=== PATIENT | female | born 1950 | race Two or more races ===

== ENCOUNTER 2022-06-12 19:49 | Inpatient (IN) | payer OTHER, MEDICAID ==
[~2022-06-12] VITALS: Ht 167.6 cm; Wt 60.0 kg
[2022-06-12 21:23] LABS: Basophils # (auto) 0 10 ^3/uL (0-0.2); Basophils % (auto) 0.3 % (0.0-2.0); Eosinophils # (auto) 0 10 ^3/uL (0-0.8); Hematocrit 34.6 % (36.0-46.0); Hemoglobin 12.1 g/dL (12.2-16.2); Lymphocytes # (auto) 0.7 10 ^3/uL (0.4-5.4); Lymphocytes % (auto) 8.7 % (10.0-50.0); Mean Corpuscular Hemoglobin 27.7 pg (28.0-32.0); Mean Corpuscular Hgb Conc. 34.9 g/dL (32.0-36.0); Mean Corpuscular Volume 79.2 fL (80.0-100.0); Monocytes # (auto) 0.6 10 ^3/uL (0-1.3); Monocytes % (auto) 7.5 % (0.0-12.0); Neutrophils % (auto) 83.5 % (37.0-80.0); Red Blood Cells 4.37 10^6/uL (4.0-5.20); Red Cell Distribution Width 14.7 % (11.8-14.3); White Blood Cell 8.4 10^3/uL (4.4-10.8)
[2022-06-12 21:35] LABS: Albumin 3.3 g/dL (3.4-5.0); Calcium 9.1 mg/dL (8.5-10.1); Potassium 4.7 mmol/L (3.5-5.1)
[2022-06-12 21:38] LABS: BUN/Creatinine Ratio 27.8 (10.0-20.0); INR 0.97 (0.9-1.15); Partial Thromboplastin Time 27.2 sec (24.6-33.4)
[2022-06-12 21:50] LABS: Bilirubin, Total 0.4 mg/dL (0.2-1.0)
[2022-06-12] MEDS ORDERED: LACTATED RINGER'S 1,800 ML IV ONE (22:30)
[2022-06-12] MEDS ORDERED: InsuLIN REG 1unit/0.01ml Soln (100units/ml) IV ONE (22:30)
[2022-06-13] MEDS ORDERED: DOCUSATE SOD 100 MG CAP PO PRN (00:30)
[2022-06-13] MEDS ORDERED: NITROGLYCERIN 0.4 MG SL TAB SL PRN (00:30)
[2022-06-13] MEDS ORDERED: HYDROcodone-ACET 5/325MG TAB PO PRN (00:30)
[2022-06-13] MEDS ORDERED: DEXTROSE (50%) 50ML SYRG IV PRN (00:30)
[2022-06-13] MEDS ORDERED: MORPHINE SULFATE INJ 2 MG/ml SYRG IV PRN ×2 (00:30)
[2022-06-13] MEDS ORDERED: ONDANSETRON HCL 4 MG/2 ML VIAL IV PRN (00:30)
[2022-06-13] MEDS ORDERED: ACETAMINOPHEN 325 MG TAB PO PRN (00:30)
[2022-06-13 06:29] LABS: Basophils # (auto) 0 10 ^3/uL (0-0.2); Eosinophils # (auto) 0 10 ^3/uL (0-0.8); Hematocrit 33.4 % (36.0-46.0); Hemoglobin 11.4 g/dL (12.2-16.2); Lymphocytes # (auto) 0.9 10 ^3/uL (0.4-5.4); Mean Corpuscular Hemoglobin 27.6 pg (28.0-32.0); Mean Corpuscular Hgb Conc. 34.3 g/dL (32.0-36.0); Mean Corpuscular Volume 80.5 fL (80.0-100.0); Monocytes # (auto) 0.6 10 ^3/uL (0-1.3); Neutrophils # (auto) 6.1 10 ^3/uL (1.6-8.6); Red Blood Cells 4.15 10^6/uL (4.0-5.20); Red Cell Distribution Width 14.4 % (11.8-14.3); White Blood Cell 7.6 10^3/uL (4.4-10.8)
[2022-06-13] MEDS: InsuLIN REG 1unit/0.01ml Soln (100units/ml) SC SCH ×4 (06:31→16:00)
[2022-06-13] MEDS: ACCU-CHEK COMFORT CURVE STRIP VI SCH ×4 (06:31→16:00)
[2022-06-13] MEDS: SODIUM CHLORIDE 0.9% 1,000 ML IV SCH ×2 (06:32→17:10)
[2022-06-13 06:53] LABS: Potassium 4.3 mmol/L (3.5-5.1)
[2022-06-13 06:54] LABS: Calcium 8.6 mg/dL (8.5-10.1)
[2022-06-13 06:58] LABS: Bilirubin, Total 0.5 mg/dL (0.2-1.0); Total Protein 6.7 g/dL (6.4-8.2)
[2022-06-13] MEDS ORDERED: LEVOTHYROXINE SODIUM 50 MCG TAB PO SCH (07:00)
[2022-06-13] MEDS ORDERED: ASPirin 81 mg TAB PO SCH (10:00)
[2022-06-13] MEDS ORDERED: FAMOTIDINE (10MG/ML) 2ML VL IV SCH (10:00)
[2022-06-13 17:56] VITALS: BP 124/76
[2022-06-13] MEDS ORDERED: ATORVASTATIN 20 MG TAB PO SCH (22:00)
== END 2022-06-13 18:30 | disposition home health service (06) | DRG 205 ==
LOC: ER 19:49 → EDBD 19:49 → TELE 06-13 00:18
PROVIDERS: ADMIT Nurse Practitioner Family; ATTEND Nurse Practitioner Family
DX: M94.0 Chondrocostal junction syndrome [Tietze] (principal); N17.0 Acute kidney failure with tubular necrosis; E87.1 Hypo-osmolality and hyponatremia; E86.0 Dehydration; E03.9 Hypothyroidism, unspecified; E78.5 Hyperlipidemia, unspecified; E11.65 Type 2 diabetes mellitus with hyperglycemia; I12.9 Hypertensive chronic kidney disease with stage 1 through stage 4 chronic kidney disease, or unspecified chronic kidney disease; E11.22 Type 2 diabetes mellitus with diabetic chronic kidney disease; N18.9 Chronic kidney disease, unspecified; Z79.4 Long term (current) use of insulin
CPT/HCPCS: 36415; 70450; 71045; 80053; 82962; 83036; 83735; 83880; 84443; 84484; 85025; 85610; 85730; 93005; 96361; 96374; 97163; 99291; G0378; J1815; J2405; J3490

== ENCOUNTER 2022-06-16 17:46 | Inpatient (IN) | payer OTHER, MEDICAID ==
[~2022-06-16] VITALS: Ht 167.6 cm; Wt 58.6 kg
[2022-06-16] MEDS ORDERED: SODIUM CHLORIDE 0.9% 1,000 ML IV ONE (19:00)
[2022-06-16 19:48] LABS: Hemoglobin 10.6 g/dL (12.2-16.2); Mean Corpuscular Hemoglobin 27.2 pg (28.0-32.0); Mean Corpuscular Hgb Conc. 33.1 g/dL (32.0-36.0); Mean Corpuscular Volume 82.2 fL (80.0-100.0)
[2022-06-16 19:50] LABS: Red Blood Cells 3.89 10^6/uL (4.0-5.20); Red Cell Distribution Width 14.5 % (11.8-14.3); White Blood Cell 11.7 10^3/uL (4.4-10.8)
[2022-06-16 19:53] LABS: Basophils % (manual) 0 (0.0-2.0); Blast Cells 0; Eosinophils % (manual) 0 (0-7); Myelocytes % 0; Promyelocytes % 0; Reactive Lymphocytes 0
[2022-06-16 19:57] LABS: Albumin 2.3 g/dL (3.4-5.0); Calcium 7.3 mg/dL (8.5-10.1); Magnesium 2.4 mg/dL (1.6-2.6); Potassium 5.2 mmol/L (3.5-5.1)
[2022-06-16 19:59] LABS: BUN/Creatinine Ratio 37.5 (10.0-20.0)
[2022-06-16 20:02] LABS: Bilirubin, Total 0.5 mg/dL (0.2-1.0); Total Protein 6.5 g/dL (6.4-8.2)
[2022-06-16] MEDS ORDERED: InsuLIN REG 1unit/0.01ml Soln (100units/ml) IV ONE (20:30)
[2022-06-16] MEDS ORDERED: SODIUM CHLORIDE 0.9% 2,050 ML IV ONE (20:30)
[2022-06-16] MEDS ORDERED: DEXTROSE (50%) 50ML SYRG IV PRN ×2 (21:00→21:45)
[2022-06-16] MEDS ORDERED: InsuLIN R (HUMAN) 100 UNITS in SODIUM CHL 0.9% 99 ML IV SCH (21:00)
[2022-06-16] MEDS ORDERED: ALBUMIN 25% 50 ML IV ONE (21:45)
[2022-06-16] MEDS ORDERED: TEMAZEPAM 15 MG CAP PO PRN (21:45)
[2022-06-16] MEDS ORDERED: INSULIN LANTUS (GLARGINE) 1 /0.01ml (100units/ml) SC ONE (21:45)
[2022-06-16] MEDS ORDERED: MORPHINE SULFATE INJ 2 MG/ml SYRG IV PRN (21:45)
[2022-06-16] MEDS ORDERED: NITROGLYCERIN 0.4 MG SL TAB SL PRN (21:45)
[2022-06-16] MEDS ORDERED: ACETAMINOPHEN 325 MG TAB PO PRN (21:45)
[2022-06-16] MEDS ORDERED: ONDANSETRON HCL 4 MG/2 ML VIAL ONE (21:53)
[2022-06-16] MEDS: ONDANSETRON HCL 4 MG/2 ML VIAL IV PRN (21:55)
[2022-06-16 21:57] LABS: Band Neutrophils % (manual) 25; Lymphocytes % (manual) 5 (10.0-50.0); Metamyelocytes % 1; Monocytes % (manual) 6 (0-12)
[2022-06-16] MEDS: ACCU-CHEK COMFORT CURVE STRIP VI SCH ×2 (22:00→22:30)
[2022-06-16] MEDS: InsuLIN R (HUMAN) 100 UNITS in SODIUM CHL 0.9% 99 ML IV SCH (22:10)
[2022-06-16 22:34] LABS: BUN/Creatinine Ratio 40.7 (10.0-20.0); Calcium 6.6 mg/dL (8.5-10.1); Potassium 4.2 mmol/L (3.5-5.1)
[2022-06-16] MEDS: APIXABAN 5 MG TAB PO SCH (22:51)
[2022-06-16 23:24] LABS: Urine Bacteria NONE SEEN /hpf (None Seen); Urine Blood TRACE /uL (Negative); Urine Hyaline Cast FEW /lpf (0 - 2); Urine Specific Gravity 1.014 (1.001-1.035); Urine WBC 1 /hpf (0 - 5)
[2022-06-17] VITALS (96 sets, daily range): BP systolic 77–119; BP diastolic 38–72
[2022-06-17] MEDS: SODIUM CHLORIDE 0.9% 1,000 ML IV SCH ×4 (00:36→23:45)
[2022-06-17] MEDS: ACCU-CHEK COMFORT CURVE STRIP VI SCH ×11 (00:50→20:52)
[2022-06-17] MEDS: InsuLIN R (HUMAN) 100 UNITS in SODIUM CHL 0.9% 99 ML IV SCH ×4 (00:55→06:21)
[2022-06-17] MEDS: ONDANSETRON HCL 4 MG/2 ML VIAL IV PRN ×2 (02:20→09:25)
[2022-06-17 03:00] LABS: Hemoglobin 9.8 g/dL (12.2-16.2)
[2022-06-17 03:03] LABS: Hematocrit 29.2 % (36.0-46.0); Mean Corpuscular Hemoglobin 27.8 pg (28.0-32.0); Mean Corpuscular Hgb Conc. 33.5 g/dL (32.0-36.0); Red Blood Cells 3.52 10^6/uL (4.0-5.20); Red Cell Distribution Width 14.8 % (11.8-14.3); White Blood Cell 9.8 10^3/uL (4.4-10.8)
[2022-06-17 03:09] LABS: Basophils % (manual) 0 (0.0-2.0); Blast Cells 0; Eosinophils % (manual) 0 (0-7); Promyelocytes % 0; Reactive Lymphocytes 0
[2022-06-17 03:17] LABS: Albumin 2.3 g/dL (3.4-5.0); BUN/Creatinine Ratio 48.8 (10.0-20.0); Calcium 6.9 mg/dL (8.5-10.1); Potassium 3.9 mmol/L (3.5-5.1)
[2022-06-17 03:20] LABS: Bilirubin, Total 0.4 mg/dL (0.2-1.0)
[2022-06-17 04:31] LABS: Band Neutrophils % (manual) 32; Lymphocytes % (manual) 7 (10.0-50.0); Metamyelocytes % 1; Monocytes % (manual) 6 (0-12); Myelocytes % 1
[2022-06-17] MEDS: D5W/SOD CHLO 0.9% 1,000 ML IV SCH ×2 (06:15→22:59)
[2022-06-17] MEDS ORDERED: ALBUTEROL SULF 2.5 MG/0.5ML(0.5%) NEB SOLN NEB PRN ×2 (06:15→10:00)
[2022-06-17] MEDS: APIXABAN 5 MG TAB PO SCH ×2 (07:31→22:00)
[2022-06-17] MEDS ORDERED: cefTRIAXone SOD 1,000 MG VL IM ONE (08:15)
[2022-06-17] MEDS ORDERED: FUROSEMIDE 40 MG/4 ML VIAL IV ONE (08:15)
[2022-06-17] MEDS ORDERED: NOREPINEPHRINE 8 MG/250ML KIT 250 ML IV ONE (08:16)
[2022-06-17] MEDS ORDERED: FUROSEMIDE 40 MG/4 ML VIAL ONE (08:23)
[2022-06-17] MEDS: NOREPINEPHRINE 8 MG/250ML KIT 250 ML IV SCH (08:30)
[2022-06-17] MEDS: AZITHROMYCIN 500MG/ 250ML 250 ML IV SCH (08:32)
[2022-06-17] MEDS: cefTRIAXone 1GM/50ML D5W 50 ML IV SCH (09:25)
[2022-06-17] MEDS: INSULIN LANTUS (GLARGINE) 1 /0.01ml (100units/ml) SC SCH (09:59)
[2022-06-17] MEDS ORDERED: PANTOPRAZOLE 40 MG/10 ML VIAL INJ IV SCH (10:00)
[2022-06-17] MEDS ORDERED: PANTOPRAZOLE 40 MG TAB PO SCH (10:00)
[2022-06-17 10:34] LABS: Hematocrit 30.6 % (36.0-46.0); Mean Corpuscular Hgb Conc. 32.8 g/dL (32.0-36.0); Mean Corpuscular Volume 82.4 fL (80.0-100.0); Red Blood Cells 3.71 10^6/uL (4.0-5.20); Red Cell Distribution Width 14.7 % (11.8-14.3); White Blood Cell 12.4 10^3/uL (4.4-10.8)
[2022-06-17 10:39] LABS: Basophils % (manual) 0 (0.0-2.0); Blast Cells 0; Eosinophils % (manual) 0 (0-7); Promyelocytes % 0; Reactive Lymphocytes 0
[2022-06-17 11:18] LABS: Band Neutrophils % (manual) 37; Lymphocytes % (manual) 6 (10.0-50.0); Metamyelocytes % 3; Monocytes % (manual) 3 (0-12); Myelocytes % 1
[2022-06-17 11:26] LABS: BUN/Creatinine Ratio 53.8 (10.0-20.0)
[2022-06-17] MEDS: MIDAZOLAM DRIP 50 mg/50mL 50 ML IV SCH (11:45)
[2022-06-17] MEDS ORDERED: ETOMIDATE (2MG/ML) 20ML VIAL IV ONE (11:45)
[2022-06-17] MEDS ORDERED: ROCURONIUM 10MG/ML 10ML VIAL IV ONE (11:45)
[2022-06-17] MEDS: PROPOFOL 100 ML IV SCH ×2 (12:00→18:14)
[2022-06-17] MEDS: fentaNYL Drip 2500mCg/250mlNS 250 ML IV SCH (12:00)
[2022-06-17] MEDS ORDERED: SODIUM CHLORIDE 0.9% 2,000 ML IV ONE (12:15)
[2022-06-17] MEDS ORDERED: PHENYLEPHRINE IV 250 ML IV SCH (13:00)
[2022-06-17] MEDS: ALBUTEROL SULF 2.5 MG/0.5ML(0.5%) NEB SOLN NEB SCH ×3 (13:26→22:51)
[2022-06-17] MEDS ORDERED: DEXTROSE (50%) 50ML SYRG IV PRN (13:45)
[2022-06-17] MEDS: InsuLIN REG 1unit/0.01ml Soln (100units/ml) SC SCH ×2 (15:43→20:58)
[2022-06-17] MEDS: PANTOPRAZOLE 40mg/50ML NS AE 50 ML IV SCH ×3 (15:46→23:57)
[2022-06-17 16:10] LABS: INR 1.01 (0.9-1.15)
[2022-06-17 16:21] LABS: Magnesium 2.1 mg/dL (1.6-2.6); Phosphorus 2.3 mg/dL (2.5-4.90)
[2022-06-17 16:26] LABS: % Iron Saturation 6.4 % (15-50)
[2022-06-17 16:46] LABS: Protein, Urine 65.2 mg/dL (0.0-11.9)
[2022-06-17] MEDS: PHENYLEPHRINE INJ 80 MG in SODIUM CHL 0.9% 242 ML IV SCH (17:00)
[2022-06-17 18:34] LABS: Hemoglobin 9.7 g/dL (12.2-16.2)
[2022-06-17 18:45] LABS: BUN/Creatinine Ratio 47.7 (10.0-20.0); Calcium 6.3 mg/dL (8.5-10.1); Potassium 3.4 mmol/L (3.5-5.1)
[2022-06-18] VITALS (108 sets, daily range): BP systolic 83–124; BP diastolic 45–66
[2022-06-18] MEDS: ACCU-CHEK COMFORT CURVE STRIP VI SCH ×6 (00:02→20:19)
[2022-06-18] MEDS: InsuLIN REG 1unit/0.01ml Soln (100units/ml) SC SCH ×6 (00:10→20:00)
[2022-06-18 00:38] LABS: Hematocrit 25.3 % (36.0-46.0); Hemoglobin 8.5 g/dL (12.2-16.2)
[2022-06-18] MEDS: ALBUTEROL SULF 2.5 MG/0.5ML(0.5%) NEB SOLN NEB SCH ×6 (02:42→22:10)
[2022-06-18] MEDS: PROPOFOL 100 ML IV SCH ×4 (03:02→23:48)
[2022-06-18] MEDS: PHENYLEPHRINE INJ 80 MG in SODIUM CHL 0.9% 242 ML IV SCH ×3 (03:03→21:11)
[2022-06-18] MEDS: NOREPINEPHRINE 8 MG/250ML KIT 250 ML IV SCH (03:49)
[2022-06-18] MEDS: PANTOPRAZOLE 40mg/50ML NS AE 50 ML IV SCH ×4 (05:51→23:45)
[2022-06-18] MEDS: SODIUM CHLORIDE 0.9% 1,000 ML IV SCH ×2 (06:25→10:34)
[2022-06-18 06:50] LABS: Potassium 3.2 mmol/L (3.5-5.1)
[2022-06-18] MEDS: APIXABAN 5 MG TAB PO SCH (06:57)
[2022-06-18 07:02] LABS: Albumin 1.5 g/dL (3.4-5.0); BUN/Creatinine Ratio 36.3 (10.0-20.0); Calcium 6.3 mg/dL (8.5-10.1)
[2022-06-18 07:13] LABS: Bilirubin, Total 0.3 mg/dL (0.2-1.0); Total Protein 4.8 g/dL (6.4-8.2)
[2022-06-18 07:15] LABS: Hemoglobin 8.1 g/dL (12.2-16.2); Mean Corpuscular Hemoglobin 27.6 pg (28.0-32.0); Mean Corpuscular Hgb Conc. 33.9 g/dL (32.0-36.0); Mean Corpuscular Volume 81.4 fL (80.0-100.0); Red Blood Cells 2.94 10^6/uL (4.0-5.20); Red Cell Distribution Width 14.9 % (11.8-14.3); White Blood Cell 21.1 10^3/uL (4.4-10.8)
[2022-06-18 07:52] LABS: Basophils % (manual) 0 (0.0-2.0); Blast Cells 0; Eosinophils % (manual) 0 (0-7); Metamyelocytes % 0; Myelocytes % 0; Promyelocytes % 0; Reactive Lymphocytes 0
[2022-06-18] MEDS: INSULIN LANTUS (GLARGINE) 1 /0.01ml (100units/ml) SC SCH (08:24)
[2022-06-18] MEDS: cefTRIAXone 1GM/50ML D5W 50 ML IV SCH (08:30)
[2022-06-18] MEDS: MIDAZOLAM DRIP 50 mg/50mL 50 ML IV SCH (08:31)
[2022-06-18] MEDS: AZITHROMYCIN 500MG/ 250ML 250 ML IV SCH (08:33)
[2022-06-18] MEDS: D5W/SOD CHLO 0.9% 1,000 ML IV SCH (08:55)
[2022-06-18 10:08] LABS: Band Neutrophils % (manual) 16; Lymphocytes % (manual) 16 (10.0-50.0); Monocytes % (manual) 1 (0-12)
[2022-06-18] MEDS: fentaNYL Drip 2500mCg/250mlNS 250 ML IV SCH (10:28)
[2022-06-18] MEDS ORDERED: CLINIMIX PER PHARMACY 0 ML IV SCH (13:15)
[2022-06-18] MEDS ORDERED: POTASSIUM CHL 20MEQ/100ML 100 ML IV ONE (14:30)
[2022-06-18] MEDS ORDERED: CALCIUM GLUC 1,000mg/50ml-NS 50 ML IV ONE (14:30)
[2022-06-18 14:40] LABS: Magnesium 2.3 mg/dL (1.6-2.6); Phosphorus 1.6 mg/dL (2.5-4.90)
[2022-06-18] MEDS ORDERED: SODIUM PHOSPHATES 24 MEQ in SODIUM CHL 0.9% 100 ML IV ONE (15:45)
[2022-06-18] MEDS: metroNIDAZOLE 500MG/100ML 100 ML IV SCH ×2 (16:25→23:57)
[2022-06-18] MEDS: AMINO ACID INFUSION IN D10W 1,000 ML IV NR (20:00)
[2022-06-19] VITALS (105 sets, daily range): BP systolic 81–142; BP diastolic 43–68
[2022-06-19] MEDS: ACCU-CHEK COMFORT CURVE STRIP VI SCH ×7 (00:24→23:41)
[2022-06-19] MEDS: InsuLIN REG 1unit/0.01ml Soln (100units/ml) SC SCH ×7 (00:27→23:40)
[2022-06-19] MEDS: ALBUTEROL SULF 2.5 MG/0.5ML(0.5%) NEB SOLN NEB SCH ×7 (02:44→22:28)
[2022-06-19 04:52] LABS: Hemoglobin 10.4 g/dL (12.2-16.2); Mean Corpuscular Hemoglobin 28.1 pg (28.0-32.0); Mean Corpuscular Hgb Conc. 33.6 g/dL (32.0-36.0); Mean Corpuscular Volume 83.8 fL (80.0-100.0); Red Blood Cells 3.69 10^6/uL (4.0-5.20); Red Cell Distribution Width 15.3 % (11.8-14.3); White Blood Cell 23.1 10^3/uL (4.4-10.8)
[2022-06-19] MEDS: PANTOPRAZOLE 40mg/50ML NS AE 50 ML IV SCH ×5 (04:54→20:19)
[2022-06-19 04:57] LABS: Basophils % (manual) 0 (0.0-2.0); Blast Cells 0; Eosinophils % (manual) 0 (0-7); Myelocytes % 0; Promyelocytes % 0
[2022-06-19 05:00] LABS: Potassium 3.1 mmol/L (3.5-5.1)
[2022-06-19 05:08] LABS: Albumin 1.2 g/dL (3.4-5.0); BUN/Creatinine Ratio 26.8 (10.0-20.0); Bilirubin, Total 0.4 mg/dL (0.2-1.0); Calcium 7.2 mg/dL (8.5-10.1); Magnesium 1.9 mg/dL (1.6-2.6); Total Protein 4.4 g/dL (6.4-8.2)
[2022-06-19 05:10] LABS: INR 1.02 (0.9-1.15); Partial Thromboplastin Time 23.6 sec (24.6-33.4)
[2022-06-19] MEDS: PROPOFOL 100 ML IV SCH ×2 (05:15→18:05)
[2022-06-19] MEDS: D5W/SOD CHLO 0.9% 1,000 ML IV SCH ×2 (05:15→11:35)
[2022-06-19] MEDS: metroNIDAZOLE 500MG/100ML 100 ML IV SCH ×4 (05:20→23:40)
[2022-06-19] MEDS: fentaNYL Drip 2500mCg/250mlNS 250 ML IV SCH (07:12)
[2022-06-19] MEDS: NOREPINEPHRINE 8 MG/250ML KIT 250 ML IV SCH (07:35)
[2022-06-19 07:42] LABS: Band Neutrophils % (manual) 9; Lymphocytes % (manual) 2 (10.0-50.0); Metamyelocytes % 2; Monocytes % (manual) 3 (0-12); Reactive Lymphocytes 1
[2022-06-19] MEDS: INSULIN LANTUS (GLARGINE) 1 /0.01ml (100units/ml) SC SCH (07:50)
[2022-06-19] MEDS ORDERED: POTASSIUM PHOSPHATE 44 MEQ in D5W 5% 250 ML IV ONE (08:15)
[2022-06-19] MEDS: cefTRIAXone 1GM/50ML D5W 50 ML IV SCH (08:31)
[2022-06-19] MEDS: AZITHROMYCIN 500MG/ 250ML 250 ML IV SCH (08:31)
[2022-06-19] MEDS: MIDAZOLAM DRIP 50 mg/50mL 50 ML IV SCH (10:46)
[2022-06-19] MEDS ORDERED: IOHEXOL 300 MG/ML 100ML BOTTLE IJ ONE (11:26)
[2022-06-19] MEDS ORDERED: ALBUMIN 25% 100 ML IV ONE (14:45)
[2022-06-19] MEDS ORDERED: SODIUM CHLORIDE 0.9% 1,000 ML IV ONE (14:45)
[2022-06-19] MEDS: SODIUM CHLORIDE 0.9% 1,000 ML IV SCH (15:19)
[2022-06-19] MEDS ORDERED: DexAMETHasone SOD PHOS 10MG/1ML VIAL INJ ONE (19:15)
[2022-06-19] MEDS ORDERED: ONDANSETRON HCL 4 MG/2 ML VIAL ONE (19:15)
[2022-06-20] VITALS (108 sets, daily range): BP systolic 81–167; BP diastolic 42–131
[2022-06-20] MEDS: ALBUTEROL SULF 2.5 MG/0.5ML(0.5%) NEB SOLN NEB SCH ×6 (02:03→21:55)
[2022-06-20] MEDS: PROPOFOL 100 ML IV SCH (03:24)
[2022-06-20] MEDS: PANTOPRAZOLE 40mg/50ML NS AE 50 ML IV SCH ×2 (03:24→08:26)
[2022-06-20] MEDS: InsuLIN REG 1unit/0.01ml Soln (100units/ml) SC SCH ×5 (04:00→19:42)
[2022-06-20] MEDS: ACCU-CHEK COMFORT CURVE STRIP VI SCH ×5 (04:10→19:42)
[2022-06-20 04:35] LABS: Hematocrit 32.3 % (36.0-46.0); Hemoglobin 10.5 g/dL (12.2-16.2); Mean Corpuscular Hgb Conc. 32.5 g/dL (32.0-36.0); Red Blood Cells 3.76 10^6/uL (4.0-5.20); Red Cell Distribution Width 16.1 % (11.8-14.3); White Blood Cell 26.9 10^3/uL (4.4-10.8)
[2022-06-20 04:41] LABS: Albumin 1.5 g/dL (3.4-5.0); Calcium 6.8 mg/dL (8.5-10.1); Magnesium 1.8 mg/dL (1.6-2.6); Potassium 3.3 mmol/L (3.5-5.1)
[2022-06-20 04:44] LABS: Basophils % (manual) 0 (0.0-2.0); Blast Cells 0; Eosinophils % (manual) 0 (0-7); Metamyelocytes % 0; Myelocytes % 0; Promyelocytes % 0; Reactive Lymphocytes 0
[2022-06-20 04:45] LABS: BUN/Creatinine Ratio 22.4 (10.0-20.0); Bilirubin, Total 0.5 mg/dL (0.2-1.0); Phosphorus 1.2 mg/dL (2.5-4.90); Total Protein 4.7 g/dL (6.4-8.2)
[2022-06-20] MEDS: SODIUM CHLORIDE 0.9% 1,000 ML IV SCH (05:43)
[2022-06-20] MEDS: metroNIDAZOLE 500MG/100ML 100 ML IV SCH ×3 (05:43→17:35)
[2022-06-20] MEDS: AMINO ACID INFUSION IN D10W 1,000 ML IV NR ×2 (08:10→19:41)
[2022-06-20] MEDS: NOREPINEPHRINE 8 MG/250ML KIT 250 ML IV SCH (08:15)
[2022-06-20 08:25] LABS: Band Neutrophils % (manual) 4; Lymphocytes % (manual) 4 (10.0-50.0); Monocytes % (manual) 5 (0-12)
[2022-06-20] MEDS: cefTRIAXone 1GM/50ML D5W 50 ML IV SCH (10:19)
[2022-06-20] MEDS: AZITHROMYCIN 500MG/ 250ML 250 ML IV SCH (10:19)
[2022-06-20] MEDS: fentaNYL Drip 2500mCg/250mlNS 250 ML IV SCH (10:21)
[2022-06-20] MEDS: MIDAZOLAM DRIP 50 mg/50mL 50 ML IV SCH (10:21)
[2022-06-20] MEDS: INSULIN LANTUS (GLARGINE) 1 /0.01ml (100units/ml) SC SCH (10:21)
[2022-06-20] MEDS: PHENYLEPHRINE INJ 80 MG in SODIUM CHL 0.9% 242 ML IV SCH (13:02)
[2022-06-20] MEDS ORDERED: POTASSIUM PHOSPHATE 44 MEQ in D5W 5% 250 ML IV ONE (15:30)
[2022-06-20] MEDS ORDERED: MAGNESIUM SULFATE 1GM/100ML 100 ML IV SCH ×2 (15:35→16:00)
[2022-06-21] VITALS (107 sets, daily range): BP systolic 88–167; BP diastolic 46–86
[2022-06-21] MEDS: metroNIDAZOLE 500MG/100ML 100 ML IV SCH ×5 (00:10→23:35)
[2022-06-21] MEDS: InsuLIN REG 1unit/0.01ml Soln (100units/ml) SC SCH ×7 (00:11→23:35)
[2022-06-21] MEDS: ACCU-CHEK COMFORT CURVE STRIP VI SCH ×7 (00:11→23:35)
[2022-06-21] MEDS: ALBUTEROL SULF 2.5 MG/0.5ML(0.5%) NEB SOLN NEB SCH ×6 (02:04→22:11)
[2022-06-21] MEDS: fentaNYL Drip 2500mCg/250mlNS 250 ML IV SCH ×2 (02:08→15:55)
[2022-06-21] MEDS: SODIUM CHLORIDE 0.9% 1,000 ML IV SCH ×3 (02:09→23:03)
[2022-06-21 04:45] LABS: Hematocrit 30.4 % (36.0-46.0); Hemoglobin 10.3 g/dL (12.2-16.2); Mean Corpuscular Hemoglobin 28.1 pg (28.0-32.0); Mean Corpuscular Hgb Conc. 33.9 g/dL (32.0-36.0); Red Blood Cells 3.66 10^6/uL (4.0-5.20); Red Cell Distribution Width 15.6 % (11.8-14.3); White Blood Cell 20.9 10^3/uL (4.4-10.8)
[2022-06-21 04:59] LABS: Basophils % (manual) 0 (0.0-2.0); Blast Cells 0; Eosinophils % (manual) 0 (0-7); Metamyelocytes % 0; Promyelocytes % 0; Reactive Lymphocytes 0
[2022-06-21 05:13] LABS: Calcium 7.2 mg/dL (8.5-10.1)
[2022-06-21 05:17] LABS: BUN/Creatinine Ratio 28.6 (10.0-20.0)
[2022-06-21 06:11] LABS: Phosphorus 0.8 mg/dL (2.5-4.90); Potassium 2.8 mmol/L (3.5-5.1)
[2022-06-21] MEDS ORDERED: POTASSIUM PHOSPHATE 26.4 MEQ in SODIUM CHL 0.9% 100 ML IV ONE (07:00)
[2022-06-21] MEDS: NOREPINEPHRINE 8 MG/250ML KIT 250 ML IV SCH (08:15)
[2022-06-21] MEDS: cefTRIAXone 1GM/50ML D5W 50 ML IV SCH (08:18)
[2022-06-21 08:44] LABS: Band Neutrophils % (manual) 20; Lymphocytes % (manual) 3 (10.0-50.0); Monocytes % (manual) 4 (0-12); Myelocytes % 1
[2022-06-21] MEDS: PROPOFOL 100 ML IV SCH ×2 (10:45→15:56)
[2022-06-21] MEDS: PANTOPRAZOLE 40 MG/10 ML VIAL INJ IV SCH (11:11)
[2022-06-21] MEDS: DexAMETHasone SOD PHOS 10MG/1ML VIAL INJ IV SCH (11:11)
[2022-06-21] MEDS: AZITHROMYCIN 500MG/ 250ML 250 ML IV SCH (11:12)
[2022-06-21] MEDS: INSULIN LANTUS (GLARGINE) 1 /0.01ml (100units/ml) SC SCH (11:14)
[2022-06-21] MEDS ORDERED: POTASSIUM PHOSPHATE 44 MEQ in D5W 5% 250 ML IV ONE (11:15)
[2022-06-21] MEDS: MIDAZOLAM DRIP 50 mg/50mL 50 ML IV SCH (11:45)
[2022-06-21] MEDS ORDERED: QUEtiapine FUMARATE 25 MG TAB NG ONE (14:00)
[2022-06-21] MEDS ORDERED: POTASSIUM CHL 20MEQ/100ML 100 ML IV ONE (14:00)
[2022-06-21] MEDS: PHENYLEPHRINE INJ 80 MG in SODIUM CHL 0.9% 242 ML IV SCH (17:00)
[2022-06-21 18:31] LABS: Albumin 1.2 g/dL (3.4-5.0); Calcium 7.1 mg/dL (8.5-10.1); Potassium 3.6 mmol/L (3.5-5.1)
[2022-06-21 18:35] LABS: BUN/Creatinine Ratio 21.6 (10.0-20.0); Bilirubin, Total 0.3 mg/dL (0.2-1.0); Total Protein 4.4 g/dL (6.4-8.2)
[2022-06-21] MEDS: AMINO ACID INFUSION IN D10W 1,000 ML IV NR (20:58)
[2022-06-22] VITALS (107 sets, daily range): BP systolic 85–173; BP diastolic 39–88
[2022-06-22] MEDS: ALBUTEROL SULF 2.5 MG/0.5ML(0.5%) NEB SOLN NEB SCH ×6 (02:13→22:09)
[2022-06-22] MEDS: ACCU-CHEK COMFORT CURVE STRIP VI SCH ×6 (03:30→23:43)
[2022-06-22] MEDS: InsuLIN REG 1unit/0.01ml Soln (100units/ml) SC SCH ×6 (03:30→23:43)
[2022-06-22 04:08] LABS: Hematocrit 27.2 % (36.0-46.0); Hemoglobin 9.2 g/dL (12.2-16.2); Mean Corpuscular Hemoglobin 29.2 pg (28.0-32.0); Red Blood Cells 3.16 10^6/uL (4.0-5.20); White Blood Cell 14.1 10^3/uL (4.4-10.8)
[2022-06-22 04:11] LABS: Basophils % (manual) 0 (0.0-2.0); Blast Cells 0; Eosinophils % (manual) 0 (0-7); Metamyelocytes % 0; Promyelocytes % 0; Reactive Lymphocytes 0
[2022-06-22 04:15] LABS: Albumin 1.3 g/dL (3.4-5.0); Calcium 7.2 mg/dL (8.5-10.1); Magnesium 1.7 mg/dL (1.6-2.6); Potassium 3.2 mmol/L (3.5-5.1)
[2022-06-22 04:19] LABS: BUN/Creatinine Ratio 27.1 (10.0-20.0); Bilirubin, Total 0.3 mg/dL (0.2-1.0); Total Protein 4.3 g/dL (6.4-8.2)
[2022-06-22 04:40] LABS: Phosphorus 0.8 mg/dL (2.5-4.90)
[2022-06-22] MEDS: PROPOFOL 100 ML IV SCH (05:32)
[2022-06-22] MEDS: metroNIDAZOLE 500MG/100ML 100 ML IV SCH ×4 (05:53→23:30)
[2022-06-22 08:01] LABS: Band Neutrophils % (manual) 10; Lymphocytes % (manual) 7 (10.0-50.0); Monocytes % (manual) 5 (0-12); Myelocytes % 1
[2022-06-22] MEDS: NOREPINEPHRINE 8 MG/250ML KIT 250 ML IV SCH (08:15)
[2022-06-22] MEDS: DexAMETHasone SOD PHOS 10MG/1ML VIAL INJ IV SCH (10:00)
[2022-06-22] MEDS: PANTOPRAZOLE 40 MG/10 ML VIAL INJ IV SCH (10:00)
[2022-06-22] MEDS: INSULIN LANTUS (GLARGINE) 1 /0.01ml (100units/ml) SC SCH (10:30)
[2022-06-22] MEDS: QUEtiapine FUMARATE 25 MG TAB NG SCH (11:00)
[2022-06-22] MEDS: AZITHROMYCIN 500MG/ 250ML 250 ML IV SCH (11:00)
[2022-06-22] MEDS: MIDAZOLAM DRIP 50 mg/50mL 50 ML IV SCH (11:45)
[2022-06-22] MEDS ORDERED: POTASSIUM PHOSPHATE 26.4 MEQ in SODIUM CHL 0.9% 100 ML IV ONE (12:00)
[2022-06-22] MEDS: MAGNESIUM SULFATE 1GM/100ML 100 ML IV SCH ×2 (12:00→13:08)
[2022-06-22] MEDS: SODIUM CHLORIDE 0.9% 1,000 ML IV SCH ×2 (14:00→14:30)
[2022-06-22] MEDS: cefTRIAXone 1GM/50ML D5W 50 ML IV SCH (15:00)
[2022-06-22] MEDS ORDERED: SODIUM PHOSP 40 MEQ in D5W 5% 250 ML IV ONE (17:00)
[2022-06-22] MEDS: PHENYLEPHRINE INJ 80 MG in SODIUM CHL 0.9% 242 ML IV SCH (17:00)
[2022-06-22 19:35] LABS: Potassium 3.2 mmol/L (3.5-5.1)
[2022-06-22] MEDS: AMINO ACID INFUSION IN D10W 1,000 ML IV NR (19:39)
[2022-06-22] MEDS: fentaNYL Drip 2500mCg/250mlNS 250 ML IV SCH (19:55)
[2022-06-23] VITALS (104 sets, daily range): BP systolic 72–167; BP diastolic 18–128
[2022-06-23] MEDS: PROPOFOL 100 ML IV SCH ×2 (01:17→13:24)
[2022-06-23] MEDS: ALBUTEROL SULF 2.5 MG/0.5ML(0.5%) NEB SOLN NEB SCH ×6 (01:53→21:59)
[2022-06-23] MEDS: InsuLIN REG 1unit/0.01ml Soln (100units/ml) SC SCH ×5 (04:00→20:00)
[2022-06-23] MEDS: ACCU-CHEK COMFORT CURVE STRIP VI SCH ×5 (04:00→20:00)
[2022-06-23 04:17] LABS: Hematocrit 24.8 % (36.0-46.0); Hemoglobin 8.5 g/dL (12.2-16.2); Mean Corpuscular Hemoglobin 28.8 pg (28.0-32.0); Mean Corpuscular Hgb Conc. 34.4 g/dL (32.0-36.0); Mean Corpuscular Volume 83.6 fL (80.0-100.0); Red Blood Cells 2.97 10^6/uL (4.0-5.20); Red Cell Distribution Width 15.6 % (11.8-14.3); White Blood Cell 10.2 10^3/uL (4.4-10.8)
[2022-06-23 04:32] LABS: Albumin 1.2 g/dL (3.4-5.0); Anion Gap 2 (5-15); Blood Urea Nitrogen 15 mg/dL (7-18); Calcium 7.1 mg/dL (8.5-10.1); Carbon Dioxide 27 mmol/L (21-32); Chloride 112 mmol/L (98-107); Glucose 161 mg/dL (74-106); Magnesium 1.8 mg/dL (1.6-2.6); Sodium 141 mmol/L (136-145)
[2022-06-23 04:35] LABS: Alanine Aminotransferase < 6 U/L (13-56); Alkaline Phosphatase 43 U/L (45-117); Aspartate Aminotransferase 7 U/L (15-37); BUN/Creatinine Ratio 44.1 (10.0-20.0); Bilirubin, Total 0.2 mg/dL (0.2-1.0); GFR African American 242 mL/min; GFR Non-African American 200 mL/min; Phosphorus 1.8 mg/dL (2.5-4.90); Total Protein 4.1 g/dL (6.4-8.2)
[2022-06-23 04:49] LABS: Potassium 2.8 mmol/L (3.5-5.1)
[2022-06-23 05:15] LABS: Basophils % (manual) 0 (0.0-2.0); Blast Cells 0; Metamyelocytes % 0; Myelocytes % 0; Promyelocytes % 0; Reactive Lymphocytes 0
[2022-06-23 05:16] LABS: Band Neutrophils % (manual) 28; Eosinophils % (manual) 1 (0-7); Lymphocytes % (manual) 8 (10.0-50.0); Monocytes % (manual) 2 (0-12)
[2022-06-23] MEDS ORDERED: POTASSIUM PHOSPHATE 26.4 MEQ in SODIUM CHL 0.9% 100 ML IV ONE (05:30)
[2022-06-23] MEDS: metroNIDAZOLE 500MG/100ML 100 ML IV SCH ×3 (05:30→18:00)
[2022-06-23] MEDS ORDERED: SODIUM PHOSPHATES 40 MEQ in D5W 5% 250 ML IV ONE (05:30)
[2022-06-23] MEDS: NOREPINEPHRINE 8 MG/250ML KIT 250 ML IV SCH (08:15)
[2022-06-23] MEDS: cefTRIAXone 1GM/50ML D5W 50 ML IV SCH (08:49)
[2022-06-23] MEDS: PANTOPRAZOLE 40 MG/10 ML VIAL INJ IV SCH (09:30)
[2022-06-23] MEDS: DexAMETHasone SOD PHOS 10MG/1ML VIAL INJ IV SCH (09:30)
[2022-06-23] MEDS: QUEtiapine FUMARATE 25 MG TAB NG SCH (09:30)
[2022-06-23] MEDS: AZITHROMYCIN 500MG/ 250ML 250 ML IV SCH (10:00)
[2022-06-23] MEDS: INSULIN LANTUS (GLARGINE) 1 /0.01ml (100units/ml) SC SCH (10:00)
[2022-06-23] MEDS ORDERED: POTASSIUM CHL 20MEQ/100ML 100 ML IV ONE (10:30)
[2022-06-23] MEDS: MIDAZOLAM DRIP 50 mg/50mL 50 ML IV SCH (11:45)
[2022-06-23] MEDS: SODIUM CHLORIDE 0.9% 1,000 ML IV SCH (12:43)
[2022-06-23] MEDS: PHENYLEPHRINE INJ 80 MG in SODIUM CHL 0.9% 242 ML IV SCH (17:00)
[2022-06-23] MEDS: fentaNYL Drip 2500mCg/250mlNS 250 ML IV SCH (17:30)
[2022-06-23] MEDS: POTASSIUM CHL 20MEQ/100ML 100 ML IV SCH ×2 (20:21→22:28)
[2022-06-23] MEDS: AMINO ACID INFUSION IN D10W 1,000 ML IV NR (20:23)
[2022-06-24] VITALS (108 sets, daily range): BP systolic 83–178; BP diastolic 50–118
[2022-06-24] MEDS: metroNIDAZOLE 500MG/100ML 100 ML IV SCH ×4 (00:35→18:43)
[2022-06-24] MEDS: ALBUTEROL SULF 2.5 MG/0.5ML(0.5%) NEB SOLN NEB SCH ×6 (02:09→22:09)
[2022-06-24] MEDS: ACCU-CHEK COMFORT CURVE STRIP VI SCH ×6 (03:25→20:00)
[2022-06-24] MEDS: InsuLIN REG 1unit/0.01ml Soln (100units/ml) SC SCH ×6 (03:26→20:00)
[2022-06-24] MEDS: PROPOFOL 100 ML IV SCH (04:16)
[2022-06-24 04:58] LABS: Albumin 1.3 g/dL (3.4-5.0); Calcium 6.8 mg/dL (8.5-10.1); Magnesium 1.7 mg/dL (1.6-2.6); Potassium 4.5 mmol/L (3.5-5.1)
[2022-06-24 05:04] LABS: BUN/Creatinine Ratio 36.8 (10.0-20.0); Bilirubin, Total 0.4 mg/dL (0.2-1.0); Phosphorus 1.4 mg/dL (2.5-4.90); Total Protein 4.3 g/dL (6.4-8.2)
[2022-06-24] MEDS: NOREPINEPHRINE 8 MG/250ML KIT 250 ML IV SCH (08:15)
[2022-06-24] MEDS ORDERED: SODIUM PHOSPHATES 40 MEQ in D5W 5% 250 ML IV ONE (08:45)
[2022-06-24] MEDS: cefTRIAXone 1GM/50ML D5W 50 ML IV SCH (08:57)
[2022-06-24] MEDS: PANTOPRAZOLE 40 MG/10 ML VIAL INJ IV SCH (10:03)
[2022-06-24] MEDS: SODIUM CHLORIDE 0.9% 1,000 ML IV SCH ×2 (10:04→23:42)
[2022-06-24] MEDS: DexAMETHasone SOD PHOS 10MG/1ML VIAL INJ IV SCH (10:04)
[2022-06-24] MEDS: AZITHROMYCIN 500MG/ 250ML 250 ML IV SCH (10:05)
[2022-06-24] MEDS: QUEtiapine FUMARATE 25 MG TAB NG SCH (10:05)
[2022-06-24] MEDS: INSULIN LANTUS (GLARGINE) 1 /0.01ml (100units/ml) SC SCH (10:18)
[2022-06-24] MEDS: MIDAZOLAM DRIP 50 mg/50mL 50 ML IV SCH (11:45)
[2022-06-24] MEDS: fentaNYL Drip 2500mCg/250mlNS 250 ML IV SCH (16:50)
[2022-06-24] MEDS: PHENYLEPHRINE INJ 80 MG in SODIUM CHL 0.9% 242 ML IV SCH (17:00)
[2022-06-24] MEDS: AMINO ACID INFUSION IN D10W 1,000 ML IV NR (20:58)
[2022-06-25] VITALS (100 sets, daily range): BP systolic 72–165; BP diastolic 47–103
[2022-06-25] MEDS: metroNIDAZOLE 500MG/100ML 100 ML IV SCH ×4 (00:13→19:30)
[2022-06-25] MEDS: ACCU-CHEK COMFORT CURVE STRIP VI SCH ×6 (00:22→20:11)
[2022-06-25] MEDS: ALBUTEROL SULF 2.5 MG/0.5ML(0.5%) NEB SOLN NEB SCH ×6 (02:12→21:54)
[2022-06-25] MEDS: InsuLIN REG 1unit/0.01ml Soln (100units/ml) SC SCH ×6 (04:00→20:21)
[2022-06-25 05:46] LABS: Calcium 7.1 mg/dL (8.5-10.1); Potassium 3.1 mmol/L (3.5-5.1)
[2022-06-25 05:49] LABS: Albumin 1.3 g/dL (3.4-5.0); BUN/Creatinine Ratio 36.1 (10.0-20.0); Magnesium 1.6 mg/dL (1.6-2.6)
[2022-06-25 06:41] LABS: Bilirubin, Total 0.2 mg/dL (0.2-1.0); Phosphorus 1.6 mg/dL (2.5-4.90); Total Protein 4.7 g/dL (6.4-8.2)
[2022-06-25 07:25] LABS: Basophils # (auto) 0 10 ^3/uL (0-0.2); Basophils % (auto) 0.1 % (0.0-2.0); Eosinophils # (auto) 0.1 10 ^3/uL (0-0.8); Eosinophils % (auto) 0.6 % (0.0-7.0); Hematocrit 30.8 % (36.0-46.0); Hemoglobin 10.5 g/dL (12.2-16.2); Lymphocytes % (auto) 6.9 % (10.0-50.0); Mean Corpuscular Hgb Conc. 34.2 g/dL (32.0-36.0); Mean Corpuscular Volume 84.8 fL (80.0-100.0); Monocytes # (auto) 0.7 10 ^3/uL (0-1.3); Monocytes % (auto) 4.7 % (0.0-12.0); Neutrophils # (auto) 12.9 10 ^3/uL (1.6-8.6); Neutrophils % (auto) 87.7 % (37.0-80.0); Nucleated Red Blood Cells % 0.1 %; Red Blood Cells 3.64 10^6/uL (4.0-5.20); Red Cell Distribution Width 15.7 % (11.8-14.3); White Blood Cell 14.7 10^3/uL (4.4-10.8)
[2022-06-25] MEDS: SODIUM CHLORIDE 0.9% 1,000 ML IV SCH (07:38)
[2022-06-25] MEDS: NOREPINEPHRINE 8 MG/250ML KIT 250 ML IV SCH (08:15)
[2022-06-25] MEDS: cefTRIAXone 1GM/50ML D5W 50 ML IV SCH (08:50)
[2022-06-25] MEDS ORDERED: POTASSIUM PHOSPHATE 44 MEQ in D5W 5% 250 ML IV ONE (09:15)
[2022-06-25] MEDS: AZITHROMYCIN 500MG/ 250ML 250 ML IV SCH (09:45)
[2022-06-25] MEDS: MAGNESIUM SULFATE 1GM/100ML 100 ML IV SCH ×2 (09:46→11:55)
[2022-06-25] MEDS: DexAMETHasone SOD PHOS 10MG/1ML VIAL INJ IV SCH (09:47)
[2022-06-25] MEDS: PANTOPRAZOLE 40 MG/10 ML VIAL INJ IV SCH (09:47)
[2022-06-25] MEDS: QUEtiapine FUMARATE 25 MG TAB NG SCH (09:47)
[2022-06-25] MEDS: INSULIN LANTUS (GLARGINE) 1 /0.01ml (100units/ml) SC SCH (10:00)
[2022-06-25] MEDS: MIDAZOLAM DRIP 50 mg/50mL 50 ML IV SCH (11:45)
[2022-06-25] MEDS: PHENYLEPHRINE INJ 80 MG in SODIUM CHL 0.9% 242 ML IV SCH (17:00)
[2022-06-25] MEDS: AMINO ACID INFUSION IN D10W 1,000 ML IV NR (22:00)
[2022-06-25] MEDS: fentaNYL Drip 2500mCg/250mlNS 250 ML IV SCH (23:00)
[2022-06-26] VITALS (105 sets, daily range): BP systolic 54–161; BP diastolic 29–102
[2022-06-26] MEDS: ACCU-CHEK COMFORT CURVE STRIP VI SCH ×6 (00:04→20:30)
[2022-06-26] MEDS: InsuLIN REG 1unit/0.01ml Soln (100units/ml) SC SCH ×6 (00:12→20:30)
[2022-06-26] MEDS: metroNIDAZOLE 500MG/100ML 100 ML IV SCH ×4 (00:12→17:28)
[2022-06-26] MEDS: ALBUTEROL SULF 2.5 MG/0.5ML(0.5%) NEB SOLN NEB SCH ×6 (02:26→22:25)
[2022-06-26] MEDS: SODIUM CHLORIDE 0.9% 1,000 ML IV SCH ×2 (04:18→23:06)
[2022-06-26 04:44] LABS: Albumin 1.5 g/dL (3.4-5.0); BUN/Creatinine Ratio 34.9 (10.0-20.0); Calcium 7.3 mg/dL (8.5-10.1)
[2022-06-26 05:23] LABS: Bilirubin, Total 0.3 mg/dL (0.2-1.0); Magnesium 1.7 mg/dL (1.6-2.6); Phosphorus 1.3 mg/dL (2.5-4.90); Total Protein 5.3 g/dL (6.4-8.2)
[2022-06-26] MEDS ORDERED: POTASSIUM PHOSPHATE 44 MEQ in D5W 5% 250 ML IV ONE ×2 (06:30→10:15)
[2022-06-26] MEDS: NOREPINEPHRINE 8 MG/250ML KIT 250 ML IV SCH ×2 (08:15→16:19)
[2022-06-26] MEDS: cefTRIAXone 1GM/50ML D5W 50 ML IV SCH (09:50)
[2022-06-26] MEDS: DexAMETHasone SOD PHOS 10MG/1ML VIAL INJ IV SCH (10:19)
[2022-06-26] MEDS: QUEtiapine FUMARATE 25 MG TAB NG SCH (10:19)
[2022-06-26] MEDS: AZITHROMYCIN 500MG/ 250ML 250 ML IV SCH (10:19)
[2022-06-26] MEDS: PANTOPRAZOLE 40 MG/10 ML VIAL INJ IV SCH (10:19)
[2022-06-26] MEDS: INSULIN LANTUS (GLARGINE) 1 /0.01ml (100units/ml) SC SCH (10:35)
[2022-06-26] MEDS: MIDAZOLAM DRIP 50 mg/50mL 50 ML IV SCH (11:45)
[2022-06-26] MEDS: PHENYLEPHRINE INJ 80 MG in SODIUM CHL 0.9% 242 ML IV SCH (17:00)
[2022-06-26] MEDS: AMINO ACID INFUSION IN D10W 1,000 ML IV NR (20:46)
[2022-06-26] MEDS: fentaNYL Drip 2500mCg/250mlNS 250 ML IV SCH (23:08)
[2022-06-27] VITALS (102 sets, daily range): BP systolic 81–168; BP diastolic 49–102
[2022-06-27] MEDS: metroNIDAZOLE 500MG/100ML 100 ML IV SCH ×4 (00:20→19:53)
[2022-06-27] MEDS: ACCU-CHEK COMFORT CURVE STRIP VI SCH ×5 (00:21→16:25)
[2022-06-27] MEDS: ALBUTEROL SULF 2.5 MG/0.5ML(0.5%) NEB SOLN NEB SCH ×6 (02:25→22:10)
[2022-06-27] MEDS: InsuLIN REG 1unit/0.01ml Soln (100units/ml) SC SCH ×5 (04:00→16:36)
[2022-06-27 04:32] LABS: Albumin 1.5 g/dL (3.4-5.0); Calcium 6.9 mg/dL (8.5-10.1); Magnesium 1.8 mg/dL (1.6-2.6); Potassium 3.2 mmol/L (3.5-5.1)
[2022-06-27 04:36] LABS: BUN/Creatinine Ratio 35.2 (10.0-20.0); Bilirubin, Total 0.2 mg/dL (0.2-1.0); Phosphorus 1.3 mg/dL (2.5-4.90); Total Protein 5.1 g/dL (6.4-8.2)
[2022-06-27] MEDS: DexAMETHasone SOD PHOS 10MG/1ML VIAL INJ IV SCH (08:16)
[2022-06-27] MEDS: QUEtiapine FUMARATE 25 MG TAB NG SCH (08:16)
[2022-06-27] MEDS: PANTOPRAZOLE 40 MG/10 ML VIAL INJ IV SCH (08:17)
[2022-06-27] MEDS: AZITHROMYCIN 500MG/ 250ML 250 ML IV SCH (08:17)
[2022-06-27] MEDS: cefTRIAXone 1GM/50ML D5W 50 ML IV SCH (08:17)
[2022-06-27] MEDS: SODIUM CHLORIDE 0.9% 1,000 ML IV SCH ×2 (08:54→22:18)
[2022-06-27] MEDS: MIDAZOLAM DRIP 50 mg/50mL 50 ML IV SCH (11:45)
[2022-06-27] MEDS ORDERED: POTASSIUM PHOSPHATE 44 MEQ in D5W 5% 250 ML IV ONE (12:00)
[2022-06-27] MEDS: MAGNESIUM SULFATE 1GM/100ML 100 ML IV SCH ×2 (12:20→13:57)
[2022-06-27] MEDS: INSULIN LANTUS (GLARGINE) 1 /0.01ml (100units/ml) SC SCH (13:00)
[2022-06-27] MEDS: PHENYLEPHRINE INJ 80 MG in SODIUM CHL 0.9% 242 ML IV SCH (17:00)
[2022-06-27] MEDS: AMINO ACID INFUSION IN D10W 1,000 ML IV NR (19:54)
[2022-06-27] MEDS: fentaNYL Drip 2500mCg/250mlNS 250 ML IV SCH (22:30)
[2022-06-28] VITALS (100 sets, daily range): BP systolic 65–201; BP diastolic 41–138
[2022-06-28] MEDS ORDERED: DEXTROSE (50%) 50ML SYRG IV PRN
[2022-06-28] MEDS: ACCU-CHEK COMFORT CURVE STRIP VI SCH ×4 (00:10→18:05)
[2022-06-28] MEDS: InsuLIN REG 1unit/0.01ml Soln (100units/ml) SC SCH ×4 (00:19→18:08)
[2022-06-28] MEDS: ALBUTEROL SULF 2.5 MG/0.5ML(0.5%) NEB SOLN NEB SCH ×6 (02:07→21:53)
[2022-06-28] MEDS: metroNIDAZOLE 500MG/100ML 100 ML IV SCH ×4 (02:10→18:15)
[2022-06-28 06:39] LABS: Albumin 1.6 g/dL (3.4-5.0); Potassium 3.5 mmol/L (3.5-5.1)
[2022-06-28 06:43] LABS: BUN/Creatinine Ratio 33.3 (10.0-20.0); Bilirubin, Total 0.2 mg/dL (0.2-1.0)
[2022-06-28] MEDS: NOREPINEPHRINE 8 MG/250ML KIT 250 ML IV SCH (08:15)
[2022-06-28] MEDS: PANTOPRAZOLE 40 MG/10 ML VIAL INJ IV SCH (09:16)
[2022-06-28] MEDS: DexAMETHasone SOD PHOS 10MG/1ML VIAL INJ IV SCH (09:16)
[2022-06-28] MEDS: cefTRIAXone 1GM/50ML D5W 50 ML IV SCH (09:17)
[2022-06-28] MEDS: AZITHROMYCIN 500MG/ 250ML 250 ML IV SCH (09:17)
[2022-06-28] MEDS: QUEtiapine FUMARATE 25 MG TAB NG SCH (09:17)
[2022-06-28] MEDS: INSULIN LANTUS (GLARGINE) 1 /0.01ml (100units/ml) SC SCH (09:42)
[2022-06-28] MEDS ORDERED: SODIUM PHOSPHATES 40 MEQ in D5W 5% 250 ML IV ONE (09:45)
[2022-06-28] MEDS: MIDAZOLAM DRIP 50 mg/50mL 50 ML IV SCH ×2 (11:45→16:00)
[2022-06-28] MEDS: SODIUM CHLORIDE 0.9% 1,000 ML IV SCH (13:24)
[2022-06-28] MEDS: PHENYLEPHRINE INJ 80 MG in SODIUM CHL 0.9% 242 ML IV SCH ×2 (17:00→17:56)
[2022-06-28] MEDS ORDERED: FUROSEMIDE 40 MG/4 ML VIAL IV ONE (19:30)
[2022-06-28] MEDS ORDERED: POTASSIUM PHOSPHATE 22 MEQ in SODIUM CHL 0.9% 100 ML IV ONE (20:00)
[2022-06-28] MEDS: ALBUMIN 25% 100 ML IV SCH (20:20)
[2022-06-28] MEDS: AMINO ACID INFUSION IN D10W 1,000 ML IV NR (20:36)
[2022-06-29] VITALS (104 sets, daily range): BP systolic 81–180; BP diastolic 44–111
[2022-06-29] MEDS: ACCU-CHEK COMFORT CURVE STRIP VI SCH ×5 (00:02→23:45)
[2022-06-29] MEDS: metroNIDAZOLE 500MG/100ML 100 ML IV SCH ×5 (00:02→23:42)
[2022-06-29] MEDS: ALBUTEROL SULF 2.5 MG/0.5ML(0.5%) NEB SOLN NEB SCH ×6 (02:01→22:00)
[2022-06-29] MEDS: ALBUMIN 25% 100 ML IV SCH ×3 (03:30→19:30)
[2022-06-29 04:22] LABS: Albumin 1.9 g/dL (3.4-5.0); Calcium 6.9 mg/dL (8.5-10.1); Magnesium 1.7 mg/dL (1.6-2.6); Potassium 3.4 mmol/L (3.5-5.1)
[2022-06-29 04:26] LABS: BUN/Creatinine Ratio 30.5 (10.0-20.0); Bilirubin, Total 0.2 mg/dL (0.2-1.0); Phosphorus 2.2 mg/dL (2.5-4.90); Total Protein 4.7 g/dL (6.4-8.2)
[2022-06-29] MEDS: fentaNYL Drip 2500mCg/250mlNS 250 ML IV SCH (04:30)
[2022-06-29] MEDS: InsuLIN REG 1unit/0.01ml Soln (100units/ml) SC SCH ×5 (06:35→23:45)
[2022-06-29] MEDS: NOREPINEPHRINE 8 MG/250ML KIT 250 ML IV SCH (08:15)
[2022-06-29] MEDS ORDERED: POTASSIUM PHOSPHATE 44 MEQ in D5W 5% 250 ML IV ONE (09:00)
[2022-06-29] MEDS: cefTRIAXone 1GM/50ML D5W 50 ML IV SCH (09:23)
[2022-06-29] MEDS: DexAMETHasone SOD PHOS 10MG/1ML VIAL INJ IV SCH (09:24)
[2022-06-29] MEDS: QUEtiapine FUMARATE 25 MG TAB NG SCH (09:24)
[2022-06-29] MEDS: FUROSEMIDE 40 MG/4 ML VIAL IV SCH (09:24)
[2022-06-29] MEDS: PANTOPRAZOLE 40 MG/10 ML VIAL INJ IV SCH (09:25)
[2022-06-29] MEDS: INSULIN LANTUS (GLARGINE) 1 /0.01ml (100units/ml) SC SCH (09:33)
[2022-06-29] MEDS: PHENYLEPHRINE INJ 80 MG in SODIUM CHL 0.9% 242 ML IV SCH (17:00)
[2022-06-29] MEDS: AMINO ACID INFUSION IN D10W 1,000 ML IV NR (18:44)
[2022-06-30] VITALS (106 sets, daily range): BP systolic 90–210; BP diastolic 28–170
[2022-06-30] MEDS: fentaNYL Drip 2500mCg/250mlNS 250 ML IV SCH (01:48)
[2022-06-30] MEDS: ALBUTEROL SULF 2.5 MG/0.5ML(0.5%) NEB SOLN NEB SCH ×5 (02:06→19:25)
[2022-06-30] MEDS: ALBUMIN 25% 100 ML IV SCH ×2 (03:09→12:00)
[2022-06-30 04:47] LABS: Potassium 3.4 mmol/L (3.5-5.1)
[2022-06-30 04:54] LABS: Albumin 2.5 g/dL (3.4-5.0); BUN/Creatinine Ratio 37.5 (10.0-20.0); Bilirubin, Total 0.3 mg/dL (0.2-1.0); Magnesium 1.8 mg/dL (1.6-2.6); Phosphorus 1.5 mg/dL (2.5-4.90); Total Protein 4.8 g/dL (6.4-8.2)
[2022-06-30] MEDS: metroNIDAZOLE 500MG/100ML 100 ML IV SCH ×3 (05:54→17:45)
[2022-06-30] MEDS: InsuLIN REG 1unit/0.01ml Soln (100units/ml) SC SCH ×3 (05:57→17:55)
[2022-06-30] MEDS: ACCU-CHEK COMFORT CURVE STRIP VI SCH ×4 (05:58→17:54)
[2022-06-30] MEDS: NOREPINEPHRINE 8 MG/250ML KIT 250 ML IV SCH (08:15)
[2022-06-30] MEDS: cefTRIAXone 1GM/50ML D5W 50 ML IV SCH (09:19)
[2022-06-30] MEDS: QUEtiapine FUMARATE 25 MG TAB NG SCH (10:00)
[2022-06-30] MEDS ORDERED: POTASSIUM PHOSPHATE 44 MEQ in D5W 5% 250 ML IV ONE (11:00)
[2022-06-30] MEDS: INSULIN LANTUS (GLARGINE) 1 /0.01ml (100units/ml) SC SCH (11:56)
[2022-06-30] MEDS: FUROSEMIDE 40 MG/4 ML VIAL IV SCH (11:57)
[2022-06-30] MEDS: DexAMETHasone SOD PHOS 10MG/1ML VIAL INJ IV SCH (11:58)
[2022-06-30] MEDS: PANTOPRAZOLE 40 MG/10 ML VIAL INJ IV SCH (11:58)
[2022-06-30] MEDS: MIDAZOLAM DRIP 50 mg/50mL 50 ML IV SCH (14:32)
[2022-06-30] MEDS: PHENYLEPHRINE INJ 80 MG in SODIUM CHL 0.9% 242 ML IV SCH (17:00)
[2022-06-30] MEDS: MAGNESIUM SULFATE 1GM/100ML 100 ML IV SCH ×2 (20:54→22:00)
[2022-06-30] MEDS: PIPERACILLIN-TAZOB 3.375GM 100 ML IV SCH (20:55)
[2022-06-30] MEDS: AMINO ACID INFUSION IN D10W 1,000 ML IV NR (20:55)
[2022-07-01] VITALS (98 sets, daily range): BP systolic 74–192; BP diastolic 57–117
[2022-07-01] MEDS: PIPERACILLIN-TAZOB 3.375GM 100 ML IV SCH ×4 (00:39→18:05)
[2022-07-01] MEDS: fentaNYL Drip 2500mCg/250mlNS 250 ML IV SCH (01:15)
[2022-07-01 04:41] LABS: Basophils # (auto) 0 10 ^3/uL (0-0.2); Basophils % (auto) 0.1 % (0.0-2.0); Eosinophils # (auto) 0 10 ^3/uL (0-0.8); Hemoglobin 7.9 g/dL (12.2-16.2); Lymphocytes # (auto) 0.8 10 ^3/uL (0.4-5.4); Mean Corpuscular Hemoglobin 29.4 pg (28.0-32.0); Monocytes # (auto) 0.4 10 ^3/uL (0-1.3); White Blood Cell 7.7 10^3/uL (4.4-10.8)
[2022-07-01 04:42] LABS: Eosinophils % (auto) 0.1 % (0.0-7.0); Hematocrit 23.2 % (36.0-46.0); Lymphocytes % (auto) 10.2 % (10.0-50.0); Mean Corpuscular Volume 86.5 fL (80.0-100.0); Monocytes % (auto) 5.3 % (0.0-12.0); Neutrophils # (auto) 6.5 10 ^3/uL (1.6-8.6); Neutrophils % (auto) 84.3 % (37.0-80.0); Red Blood Cells 2.68 10^6/uL (4.0-5.20); Red Cell Distribution Width 16.2 % (11.8-14.3)
[2022-07-01 04:45] LABS: Albumin 2.9 g/dL (3.4-5.0); Calcium 7.5 mg/dL (8.5-10.1); Magnesium 2.2 mg/dL (1.6-2.6); Potassium 3.5 mmol/L (3.5-5.1)
[2022-07-01 04:48] LABS: BUN/Creatinine Ratio 29.1 (10.0-20.0); Bilirubin, Total 0.3 mg/dL (0.2-1.0); Phosphorus 1.3 mg/dL (2.5-4.90)
[2022-07-01] MEDS: ACCU-CHEK COMFORT CURVE STRIP VI SCH ×3 (06:17→18:20)
[2022-07-01] MEDS: ALBUTEROL SULF 2.5 MG/0.5ML(0.5%) NEB SOLN NEB SCH ×3 (06:17→22:04)
[2022-07-01] MEDS: InsuLIN REG 1unit/0.01ml Soln (100units/ml) SC SCH ×4 (06:19→18:23)
[2022-07-01] MEDS: NOREPINEPHRINE 8 MG/250ML KIT 250 ML IV SCH (08:15)
[2022-07-01] MEDS ORDERED: POTASSIUM PHOSPHATE 44 MEQ in D5W 5% 250 ML IV ONE (10:00)
[2022-07-01] MEDS: PANTOPRAZOLE 40 MG/10 ML VIAL INJ IV SCH (10:58)
[2022-07-01] MEDS: FUROSEMIDE 40 MG/4 ML VIAL IV SCH (10:58)
[2022-07-01] MEDS: DexAMETHasone SOD PHOS 10MG/1ML VIAL INJ IV SCH (10:59)
[2022-07-01] MEDS: INSULIN LANTUS (GLARGINE) 1 /0.01ml (100units/ml) SC SCH (11:19)
[2022-07-01] MEDS: QUEtiapine FUMARATE 25 MG TAB NG SCH (11:23)
[2022-07-01] MEDS: MIDAZOLAM DRIP 50 mg/50mL 50 ML IV SCH (11:23)
[2022-07-01] MEDS ORDERED: ACETYLCYSTEINE 20%(200MG/ML) SOL 4ML NEB SCH (14:00)
[2022-07-01] MEDS: IPRATROPIUM BROM 0.5 MG/2.5ML INH SOL NEB SCH ×2 (14:30→22:04)
[2022-07-01] MEDS: ACETYLCYSTEINE 10 %(100MG/ML) SOL 4ML NEB SCH ×2 (15:19→22:04)
[2022-07-01] MEDS: PHENYLEPHRINE INJ 80 MG in SODIUM CHL 0.9% 242 ML IV SCH (17:00)
[2022-07-01] MEDS ORDERED: SODIUM PHOSPHATES 20 MEQ in SODIUM CHL 0.9% 100 ML IV ONE (18:00)
[2022-07-01] MEDS: AMINO ACID INFUSION IN D10W 1,000 ML IV NR (21:18)
[2022-07-02] VITALS (99 sets, daily range): BP systolic 80–200; BP diastolic 46–128
[2022-07-02] MEDS: PIPERACILLIN-TAZOB 3.375GM 100 ML IV SCH ×4 (00:48→19:31)
[2022-07-02] MEDS: InsuLIN REG 1unit/0.01ml Soln (100units/ml) SC SCH ×4 (00:58→18:19)
[2022-07-02] MEDS: fentaNYL Drip 2500mCg/250mlNS 250 ML IV SCH ×2 (01:15→18:19)
[2022-07-02 05:09] LABS: Calcium 7.8 mg/dL (8.5-10.1); Potassium 3.7 mmol/L (3.5-5.1)
[2022-07-02 05:13] LABS: BUN/Creatinine Ratio 23.8 (10.0-20.0); Bilirubin, Total 0.4 mg/dL (0.2-1.0); Phosphorus 2.2 mg/dL (2.5-4.90); Total Protein 5.6 g/dL (6.4-8.2)
[2022-07-02] MEDS: ACCU-CHEK COMFORT CURVE STRIP VI SCH ×4 (05:57→18:18)
[2022-07-02] MEDS: ALBUTEROL SULF 2.5 MG/0.5ML(0.5%) NEB SOLN NEB SCH ×3 (06:27→22:41)
[2022-07-02] MEDS: IPRATROPIUM BROM 0.5 MG/2.5ML INH SOL NEB SCH ×3 (06:27→22:41)
[2022-07-02] MEDS: ACETYLCYSTEINE 10 %(100MG/ML) SOL 4ML NEB SCH ×3 (06:27→22:41)
[2022-07-02 09:38] LABS: Basophils # (auto) 0 10 ^3/uL (0-0.2); Basophils % (auto) 0.1 % (0.0-2.0); Eosinophils # (auto) 0 10 ^3/uL (0-0.8); Eosinophils % (auto) 0.2 % (0.0-7.0); Hematocrit 30.9 % (36.0-46.0); Hemoglobin 10.2 g/dL (12.2-16.2); Lymphocytes # (auto) 1.2 10 ^3/uL (0.4-5.4); Lymphocytes % (auto) 13.2 % (10.0-50.0); Mean Corpuscular Hemoglobin 28.4 pg (28.0-32.0); Mean Corpuscular Hgb Conc. 32.9 g/dL (32.0-36.0); Mean Corpuscular Volume 86.3 fL (80.0-100.0); Monocytes # (auto) 0.6 10 ^3/uL (0-1.3); Monocytes % (auto) 7.2 % (0.0-12.0); Neutrophils % (auto) 79.3 % (37.0-80.0); Nucleated Red Blood Cells % 0.1 %; Red Blood Cells 3.58 10^6/uL (4.0-5.20); Red Cell Distribution Width 16.8 % (11.8-14.3); White Blood Cell 8.9 10^3/uL (4.4-10.8)
[2022-07-02] MEDS: FUROSEMIDE 40 MG/4 ML VIAL IV SCH (09:40)
[2022-07-02] MEDS: QUEtiapine FUMARATE 25 MG TAB NG SCH (09:41)
[2022-07-02] MEDS: DexAMETHasone SOD PHOS 10MG/1ML VIAL INJ IV SCH (09:41)
[2022-07-02] MEDS: PANTOPRAZOLE 40 MG/10 ML VIAL INJ IV SCH (09:41)
[2022-07-02] MEDS: INSULIN LANTUS (GLARGINE) 1 /0.01ml (100units/ml) SC SCH (09:44)
[2022-07-02 10:05] LABS: INR 1.35 (0.9-1.15); Partial Thromboplastin Time 25.1 sec (24.6-33.4)
[2022-07-02] MEDS ORDERED: EPINEPHrine HCL 1 MG/1 ML AMP ONE (10:12)
[2022-07-02] MEDS ORDERED: LIDOCAINE 2% JELLY 11ml (GLYDO) ONE (10:12)
[2022-07-02] MEDS ORDERED: GLYCOPYRROLATE 0.2 MG/ML 1ML VIAL ONE (10:13)
[2022-07-02] MEDS ORDERED: LIDOCAINE 2%HCL (LOCAL ANESTH.) INJ 20ML MDV ONE (10:14)
[2022-07-02] MEDS: MIDAZOLAM DRIP 50 mg/50mL 50 ML IV SCH ×2 (12:30→14:09)
[2022-07-02] MEDS: NOREPINEPHRINE 8 MG/250ML KIT 250 ML IV SCH (12:30)
[2022-07-02] MEDS ORDERED: POTASSIUM PHOSPHATE 22 MEQ in SODIUM CHL 0.9% 100 ML IV ONE (13:00)
[2022-07-02] MEDS: PHENYLEPHRINE INJ 80 MG in SODIUM CHL 0.9% 242 ML IV SCH (17:00)
[2022-07-02] MEDS: AMINO ACID INFUSION IN D10W 1,000 ML IV NR (19:27)
[2022-07-03] VITALS (108 sets, daily range): BP systolic 75–194; BP diastolic 51–146
[2022-07-03] MEDS: ACCU-CHEK COMFORT CURVE STRIP VI SCH ×4 (00:12→17:59)
[2022-07-03] MEDS: InsuLIN REG 1unit/0.01ml Soln (100units/ml) SC SCH ×4 (00:13→18:01)
[2022-07-03] MEDS: MORPHINE SULFATE INJ 2 MG/ml SYRG IV PRN (00:20)
[2022-07-03] MEDS: PIPERACILLIN-TAZOB 3.375GM 100 ML IV SCH ×3 (04:00→20:03)
[2022-07-03] MEDS: IPRATROPIUM BROM 0.5 MG/2.5ML INH SOL NEB SCH ×3 (06:33→23:11)
[2022-07-03] MEDS: ACETYLCYSTEINE 10 %(100MG/ML) SOL 4ML NEB SCH ×3 (06:33→23:11)
[2022-07-03] MEDS: ALBUTEROL SULF 2.5 MG/0.5ML(0.5%) NEB SOLN NEB SCH ×3 (06:33→23:10)
[2022-07-03 06:37] LABS: Albumin 2.8 g/dL (3.4-5.0); BUN/Creatinine Ratio 30.3 (10.0-20.0); Bilirubin, Total 0.4 mg/dL (0.2-1.0); Calcium 8.1 mg/dL (8.5-10.1); Magnesium 1.8 mg/dL (1.6-2.6); Total Protein 5.8 g/dL (6.4-8.2)
[2022-07-03 06:40] LABS: Potassium 3.9 mmol/L (3.5-5.1)
[2022-07-03 08:07] LABS: Basophils # (auto) 0 10 ^3/uL (0-0.2); Basophils % (auto) 0.1 % (0.0-2.0); Eosinophils # (auto) 0 10 ^3/uL (0-0.8); Eosinophils % (auto) 0.1 % (0.0-7.0); Hematocrit 30.5 % (36.0-46.0); Hemoglobin 10.4 g/dL (12.2-16.2); Lymphocytes # (auto) 0.9 10 ^3/uL (0.4-5.4); Mean Corpuscular Hemoglobin 29.2 pg (28.0-32.0); Monocytes # (auto) 0.7 10 ^3/uL (0-1.3); Monocytes % (auto) 6.3 % (0.0-12.0); Neutrophils # (auto) 9.4 10 ^3/uL (1.6-8.6); Neutrophils % (auto) 85.5 % (37.0-80.0); Nucleated Red Blood Cells % 0.1 %; Red Blood Cells 3.55 10^6/uL (4.0-5.20); Red Cell Distribution Width 17.3 % (11.8-14.3)
[2022-07-03] MEDS: MIDAZOLAM DRIP 50 mg/50mL 50 ML IV SCH ×4 (09:07→16:56)
[2022-07-03] MEDS: NOREPINEPHRINE 8 MG/250ML KIT 250 ML IV SCH ×2 (09:08→22:20)
[2022-07-03] MEDS: PANTOPRAZOLE 40 MG/10 ML VIAL INJ IV SCH (10:19)
[2022-07-03] MEDS: DexAMETHasone SOD PHOS 10MG/1ML VIAL INJ IV SCH (10:19)
[2022-07-03] MEDS: FUROSEMIDE 40 MG/4 ML VIAL IV SCH ×2 (10:20→22:38)
[2022-07-03] MEDS: INSULIN LANTUS (GLARGINE) 1 /0.01ml (100units/ml) SC SCH (10:30)
[2022-07-03] MEDS: fentaNYL Drip 2500mCg/250mlNS 250 ML IV SCH ×2 (10:43→21:00)
[2022-07-03] MEDS ORDERED: SODIUM PHOSPHATES 40 MEQ in D5W 5% 250 ML IV ONE (12:45)
[2022-07-03] MEDS: METOPROLOL TARTRATE 1MG/1ML-5ML VIAL IV PRN (14:51)
[2022-07-03] MEDS: PHENYLEPHRINE INJ 80 MG in SODIUM CHL 0.9% 242 ML IV SCH (17:00)
[2022-07-03] MEDS: cloNIDine 0.2 mg/24hr 7DAY PATCH TD SCH (17:11)
[2022-07-03] MEDS: AMINO ACID INFUSION IN D10W 1,000 ML IV NR ×2 (17:15→20:02)
[2022-07-03] MEDS ORDERED: ROCURONIUM 10MG/ML 10ML VIAL IV ONE ×2 (20:33→20:34)
[2022-07-04] VITALS (108 sets, daily range): BP systolic 72–157; BP diastolic 47–119
[2022-07-04 03:58] LABS: Basophils # (auto) 0 10 ^3/uL (0-0.2); Basophils % (auto) 0.1 % (0.0-2.0); Eosinophils # (auto) 0 10 ^3/uL (0-0.8); Eosinophils % (auto) 0.1 % (0.0-7.0); Hemoglobin 10.4 g/dL (12.2-16.2); Lymphocytes # (auto) 1.1 10 ^3/uL (0.4-5.4); Lymphocytes % (auto) 9.1 % (10.0-50.0); Mean Corpuscular Hemoglobin 28.7 pg (28.0-32.0); Mean Corpuscular Hgb Conc. 33.5 g/dL (32.0-36.0); Mean Corpuscular Volume 85.7 fL (80.0-100.0); Monocytes # (auto) 0.6 10 ^3/uL (0-1.3); Monocytes % (auto) 4.7 % (0.0-12.0); Neutrophils # (auto) 10.6 10 ^3/uL (1.6-8.6); Red Blood Cells 3.62 10^6/uL (4.0-5.20); Red Cell Distribution Width 17.4 % (11.8-14.3); White Blood Cell 12.3 10^3/uL (4.4-10.8)
[2022-07-04] MEDS: PIPERACILLIN-TAZOB 3.375GM 100 ML IV SCH ×3 (04:00→20:51)
[2022-07-04 04:22] LABS: Albumin 2.5 g/dL (3.4-5.0); BUN/Creatinine Ratio 29.5 (10.0-20.0); Magnesium 1.7 mg/dL (1.6-2.6); Potassium 3.3 mmol/L (3.5-5.1)
[2022-07-04 04:24] LABS: Bilirubin, Total 0.4 mg/dL (0.2-1.0); Phosphorus 2.6 mg/dL (2.5-4.90); Total Protein 5.5 g/dL (6.4-8.2)
[2022-07-04] MEDS: ALBUTEROL SULF 2.5 MG/0.5ML(0.5%) NEB SOLN NEB SCH ×3 (06:41→22:04)
[2022-07-04] MEDS: IPRATROPIUM BROM 0.5 MG/2.5ML INH SOL NEB SCH ×3 (06:41→22:04)
[2022-07-04] MEDS: ACETYLCYSTEINE 10 %(100MG/ML) SOL 4ML NEB SCH ×3 (06:42→22:04)
[2022-07-04] MEDS: ACCU-CHEK COMFORT CURVE STRIP VI SCH ×5 (09:19→23:57)
[2022-07-04] MEDS: InsuLIN REG 1unit/0.01ml Soln (100units/ml) SC SCH ×5 (09:19→23:59)
[2022-07-04] MEDS: DexAMETHasone SOD PHOS 10MG/1ML VIAL INJ IV SCH (10:29)
[2022-07-04] MEDS: PANTOPRAZOLE 40 MG/10 ML VIAL INJ IV SCH (10:30)
[2022-07-04] MEDS: FUROSEMIDE 40 MG/4 ML VIAL IV SCH ×2 (10:30→22:42)
[2022-07-04] MEDS: MAGNESIUM SULFATE 1GM/100ML 100 ML IV SCH ×2 (10:31→13:55)
[2022-07-04] MEDS: POTASSIUM CHL 20MEQ/100ML 100 ML IV SCH ×3 (10:31→16:36)
[2022-07-04] MEDS: INSULIN LANTUS (GLARGINE) 1 /0.01ml (100units/ml) SC SCH (10:43)
[2022-07-04] MEDS ORDERED: MAGNESIUM SULFATE 1GM/100ML 100 ML IV ONE (13:00)
[2022-07-04] MEDS ORDERED: POTASSIUM PHOSP 22MEQ(15MMOLE) in NS 100 ML IV ONE (14:00)
[2022-07-04] MEDS: MIDAZOLAM DRIP 50 mg/50mL 50 ML IV SCH (16:30)
[2022-07-04] MEDS: PHENYLEPHRINE INJ 80 MG in SODIUM CHL 0.9% 242 ML IV SCH (16:39)
[2022-07-04] MEDS: AMINO ACID INFUSION IN D10W 1,000 ML IV NR ×2 (19:49→20:51)
[2022-07-05] VITALS (79 sets, daily range): BP systolic 77–256; BP diastolic 54–250
[2022-07-05] MEDS: fentaNYL Drip 2500mCg/250mlNS 250 ML IV SCH (00:33)
[2022-07-05] MEDS: PIPERACILLIN-TAZOB 3.375GM 100 ML IV SCH ×3 (03:59→20:43)
[2022-07-05 04:10] LABS: Basophils # (auto) 0 10 ^3/uL (0-0.2); Basophils % (auto) 0.1 % (0.0-2.0); Eosinophils # (auto) 0 10 ^3/uL (0-0.8); Eosinophils % (auto) 0.4 % (0.0-7.0); Hematocrit 30.3 % (36.0-46.0); Hemoglobin 10.4 g/dL (12.2-16.2); Lymphocytes # (auto) 1.2 10 ^3/uL (0.4-5.4); Lymphocytes % (auto) 12.9 % (10.0-50.0); Mean Corpuscular Hemoglobin 29.3 pg (28.0-32.0); Mean Corpuscular Hgb Conc. 34.3 g/dL (32.0-36.0); Mean Corpuscular Volume 85.5 fL (80.0-100.0); Monocytes # (auto) 0.6 10 ^3/uL (0-1.3); Monocytes % (auto) 6.3 % (0.0-12.0); Neutrophils # (auto) 7.7 10 ^3/uL (1.6-8.6); Neutrophils % (auto) 80.3 % (37.0-80.0); Red Blood Cells 3.55 10^6/uL (4.0-5.20); Red Cell Distribution Width 17.2 % (11.8-14.3); White Blood Cell 9.6 10^3/uL (4.4-10.8)
[2022-07-05 04:23] LABS: Albumin 2.6 g/dL (3.4-5.0); Calcium 8.3 mg/dL (8.5-10.1); Magnesium 2.1 mg/dL (1.6-2.6); Potassium 3.4 mmol/L (3.5-5.1)
[2022-07-05 04:26] LABS: BUN/Creatinine Ratio 29.9 (10.0-20.0)
[2022-07-05 04:28] LABS: Bilirubin, Total 0.5 mg/dL (0.2-1.0); Phosphorus 1.8 mg/dL (2.5-4.90)
[2022-07-05] MEDS: ACCU-CHEK COMFORT CURVE STRIP VI SCH ×3 (05:53→17:55)
[2022-07-05] MEDS: InsuLIN REG 1unit/0.01ml Soln (100units/ml) SC SCH ×3 (05:56→17:55)
[2022-07-05] MEDS: IPRATROPIUM BROM 0.5 MG/2.5ML INH SOL NEB SCH ×3 (06:58→22:02)
[2022-07-05] MEDS: ACETYLCYSTEINE 10 %(100MG/ML) SOL 4ML NEB SCH ×3 (06:59→22:03)
[2022-07-05] MEDS: ALBUTEROL SULF 2.5 MG/0.5ML(0.5%) NEB SOLN NEB SCH ×3 (06:59→22:02)
[2022-07-05] MEDS: NOREPINEPHRINE 8 MG/250ML KIT 250 ML IV SCH (08:15)
[2022-07-05] MEDS: PANTOPRAZOLE 40 MG/10 ML VIAL INJ IV SCH (09:50)
[2022-07-05] MEDS: FUROSEMIDE 40 MG/4 ML VIAL IV SCH (09:50)
[2022-07-05] MEDS: DexAMETHasone SOD PHOS 10MG/1ML VIAL INJ IV SCH (09:50)
[2022-07-05] MEDS: INSULIN LANTUS (GLARGINE) 1 /0.01ml (100units/ml) SC SCH (10:05)
[2022-07-05] MEDS: POTASSIUM CHL 20MEQ/100ML 100 ML IV SCH ×2 (11:23→13:28)
[2022-07-05] MEDS ORDERED: SODIUM PHOSPHATES 40 MEQ in D5W 5% 250 ML IV ONE (14:30)
[2022-07-05] MEDS: MIDAZOLAM DRIP 50 mg/50mL 50 ML IV SCH (16:30)
[2022-07-05] MEDS: PHENYLEPHRINE INJ 80 MG in SODIUM CHL 0.9% 242 ML IV SCH (17:00)
[2022-07-05] MEDS: AMINO ACID INFUSION IN D10W 1,000 ML IV NR ×2 (19:49→20:44)
[2022-07-05] MEDS: MORPHINE SULFATE INJ 2 MG/ml SYRG IV PRN (22:27)
[2022-07-06] VITALS (27 sets, daily range): BP systolic 101–175; BP diastolic 59–95
[2022-07-06 04:23] LABS: Basophils # (auto) 0 10 ^3/uL (0-0.2); Basophils % (auto) 0.1 % (0.0-2.0); Eosinophils # (auto) 0 10 ^3/uL (0-0.8); Eosinophils % (auto) 0.4 % (0.0-7.0); Hematocrit 29.9 % (36.0-46.0); Hemoglobin 10.2 g/dL (12.2-16.2); Mean Corpuscular Volume 85.2 fL (80.0-100.0); Monocytes # (auto) 0.7 10 ^3/uL (0-1.3); Monocytes % (auto) 7.1 % (0.0-12.0); Neutrophils # (auto) 8.2 10 ^3/uL (1.6-8.6); Neutrophils % (auto) 82.4 % (37.0-80.0); Red Blood Cells 3.51 10^6/uL (4.0-5.20); Red Cell Distribution Width 17.8 % (11.8-14.3); White Blood Cell 9.9 10^3/uL (4.4-10.8)
[2022-07-06] MEDS: ACCU-CHEK COMFORT CURVE STRIP VI SCH ×5 (04:41→23:54)
[2022-07-06] MEDS: PIPERACILLIN-TAZOB 3.375GM 100 ML IV SCH ×3 (04:42→20:24)
[2022-07-06 04:44] LABS: Potassium 3.6 mmol/L (3.5-5.1)
[2022-07-06 04:50] LABS: Albumin 2.9 g/dL (3.4-5.0); BUN/Creatinine Ratio 27.4 (10.0-20.0); Bilirubin, Total 0.6 mg/dL (0.2-1.0); Calcium 8.5 mg/dL (8.5-10.1); Magnesium 2.1 mg/dL (1.6-2.6); Phosphorus 2.1 mg/dL (2.5-4.90)
[2022-07-06] MEDS: InsuLIN REG 1unit/0.01ml Soln (100units/ml) SC SCH ×5 (06:05→23:56)
[2022-07-06] MEDS: ACETYLCYSTEINE 10 %(100MG/ML) SOL 4ML NEB SCH ×3 (06:32→21:45)
[2022-07-06] MEDS: ALBUTEROL SULF 2.5 MG/0.5ML(0.5%) NEB SOLN NEB SCH ×3 (06:32→21:45)
[2022-07-06] MEDS: IPRATROPIUM BROM 0.5 MG/2.5ML INH SOL NEB SCH ×3 (06:32→21:45)
[2022-07-06] MEDS: NOREPINEPHRINE 8 MG/250ML KIT 250 ML IV SCH (08:15)
[2022-07-06] MEDS: DexAMETHasone SOD PHOS 10MG/1ML VIAL INJ IV SCH (09:34)
[2022-07-06] MEDS: PANTOPRAZOLE 40 MG/10 ML VIAL INJ IV SCH (09:34)
[2022-07-06] MEDS: INSULIN LANTUS (GLARGINE) 1 /0.01ml (100units/ml) SC SCH (09:48)
[2022-07-06] MEDS ORDERED: FUROSEMIDE 40 MG/4 ML VIAL IV SCH (10:00)
[2022-07-06] MEDS ORDERED: SODIUM PHOSPHATES 40 MEQ in D5W 5% 250 ML IV ONE (11:00)
[2022-07-06] MEDS: AMINO ACID INFUSION IN D10W 1,000 ML IV NR (20:25)
[2022-07-07] VITALS (75 sets, daily range): BP systolic 94–232; BP diastolic 56–183
[2022-07-07 04:20] LABS: BUN/Creatinine Ratio 28.6 (10.0-20.0); Calcium 8.6 mg/dL (8.5-10.1); Magnesium 1.9 mg/dL (1.6-2.6)
[2022-07-07 04:23] LABS: Bilirubin, Total 0.6 mg/dL (0.2-1.0); Phosphorus 2.2 mg/dL (2.5-4.90); Total Protein 6.7 g/dL (6.4-8.2)
[2022-07-07] MEDS: PIPERACILLIN-TAZOB 3.375GM 100 ML IV SCH ×3 (04:34→20:12)
[2022-07-07 04:42] LABS: Potassium 2.9 mmol/L (3.5-5.1)
[2022-07-07] MEDS: POTASSIUM CHL 20MEQ/100ML 100 ML IV SCH ×5 (05:42→19:14)
[2022-07-07] MEDS: METOPROLOL TARTRATE 1MG/1ML-5ML VIAL IV PRN (05:43)
[2022-07-07] MEDS: InsuLIN REG 1unit/0.01ml Soln (100units/ml) SC SCH ×3 (05:43→17:42)
[2022-07-07] MEDS: ACCU-CHEK COMFORT CURVE STRIP VI SCH ×3 (05:43→17:41)
[2022-07-07] MEDS: IPRATROPIUM BROM 0.5 MG/2.5ML INH SOL NEB SCH ×3 (05:59→21:39)
[2022-07-07] MEDS: ACETYLCYSTEINE 10 %(100MG/ML) SOL 4ML NEB SCH ×3 (05:59→21:39)
[2022-07-07] MEDS: ALBUTEROL SULF 2.5 MG/0.5ML(0.5%) NEB SOLN NEB SCH ×3 (05:59→21:39)
[2022-07-07] MEDS: NOREPINEPHRINE 8 MG/250ML KIT 250 ML IV SCH (08:15)
[2022-07-07] MEDS: DexAMETHasone SOD PHOS 10MG/1ML VIAL INJ IV SCH (09:57)
[2022-07-07] MEDS: PANTOPRAZOLE 40 MG/10 ML VIAL INJ IV SCH (09:57)
[2022-07-07] MEDS: FUROSEMIDE 20 MG/2 ML VIAL IV SCH (09:57)
[2022-07-07] MEDS: INSULIN LANTUS (GLARGINE) 1 /0.01ml (100units/ml) SC SCH (10:45)
[2022-07-07] MEDS ORDERED: SODIUM PHOSPHATES 40 MEQ in D5W 5% 250 ML IV ONE (13:00)
[2022-07-07] MEDS: MORPHINE SULFATE INJ 2 MG/ml SYRG IV PRN (13:00)
[2022-07-07] MEDS: AMINO ACID INFUSION IN D10W 1,000 ML IV NR (20:12)
[2022-07-08] VITALS (48 sets, daily range): BP systolic 128–199; BP diastolic 66–107
[2022-07-08] MEDS: ACCU-CHEK COMFORT CURVE STRIP VI SCH ×5 (00:36→23:36)
[2022-07-08] MEDS: InsuLIN REG 1unit/0.01ml Soln (100units/ml) SC SCH ×5 (00:40→23:36)
[2022-07-08] MEDS: PIPERACILLIN-TAZOB 3.375GM 100 ML IV SCH ×3 (04:33→20:15)
[2022-07-08 04:41] LABS: Albumin 3.1 g/dL (3.4-5.0); Calcium 8.9 mg/dL (8.5-10.1); Magnesium 1.8 mg/dL (1.6-2.6); Potassium 3.2 mmol/L (3.5-5.1)
[2022-07-08 04:45] LABS: BUN/Creatinine Ratio 27.7 (10.0-20.0); Bilirubin, Total 0.6 mg/dL (0.2-1.0); Phosphorus 1.8 mg/dL (2.5-4.90)
[2022-07-08] MEDS: IPRATROPIUM BROM 0.5 MG/2.5ML INH SOL NEB SCH ×3 (06:37→22:15)
[2022-07-08] MEDS: ACETYLCYSTEINE 10 %(100MG/ML) SOL 4ML NEB SCH (06:37)
[2022-07-08] MEDS: ALBUTEROL SULF 2.5 MG/0.5ML(0.5%) NEB SOLN NEB SCH ×3 (06:37→22:15)
[2022-07-08] MEDS: NOREPINEPHRINE 8 MG/250ML KIT 250 ML IV SCH (08:15)
[2022-07-08] MEDS ORDERED: ACETAMINOPHEN 650 MG RECT SUPP PR PRN (08:45)
[2022-07-08] MEDS: FUROSEMIDE 20 MG/2 ML VIAL IV SCH (09:32)
[2022-07-08] MEDS: PANTOPRAZOLE 40 MG/10 ML VIAL INJ IV SCH (09:33)
[2022-07-08] MEDS: FLUCONAZOLE 100 MG TAB PO ONE ×2 (10:00→11:22)
[2022-07-08] MEDS: INSULIN LANTUS (GLARGINE) 1 /0.01ml (100units/ml) SC SCH (11:17)
[2022-07-08] MEDS: FLUCONAZOLE 200MG/100ML 100 ML IV SCH ×2 (14:45→15:49)
[2022-07-08] MEDS ORDERED: POTASSIUM PHOSPHATE 44 MEQ in D5W 5% 250 ML IV ONE (15:15)
[2022-07-08] MEDS: AMINO ACID INFUSION IN D10W 1,000 ML IV NR (20:15)
[2022-07-09] VITALS (46 sets, daily range): BP systolic 117–173; BP diastolic 69–92
[2022-07-09] MEDS: PIPERACILLIN-TAZOB 3.375GM 100 ML IV SCH ×3 (03:19→20:04)
[2022-07-09] MEDS: MORPHINE SULFATE INJ 2 MG/ml SYRG IV PRN (03:20)
[2022-07-09 04:09] LABS: Basophils # (auto) 0 10 ^3/uL (0-0.2); Basophils % (auto) 0.4 % (0.0-2.0); Eosinophils # (auto) 0.3 10 ^3/uL (0-0.8); Eosinophils % (auto) 2.9 % (0.0-7.0); Hematocrit 32.1 % (36.0-46.0); Hemoglobin 11.1 g/dL (12.2-16.2); Lymphocytes % (auto) 11.9 % (10.0-50.0); Mean Corpuscular Hgb Conc. 34.6 g/dL (32.0-36.0); Mean Corpuscular Volume 86.5 fL (80.0-100.0); Monocytes # (auto) 0.7 10 ^3/uL (0-1.3); Monocytes % (auto) 7.5 % (0.0-12.0); Neutrophils # (auto) 6.7 10 ^3/uL (1.6-8.6); Neutrophils % (auto) 77.3 % (37.0-80.0); Red Blood Cells 3.71 10^6/uL (4.0-5.20); Red Cell Distribution Width 17.5 % (11.8-14.3); White Blood Cell 8.7 10^3/uL (4.4-10.8)
[2022-07-09 04:28] LABS: Potassium 3.1 mmol/L (3.5-5.1)
[2022-07-09 04:34] LABS: Albumin 3.4 g/dL (3.4-5.0); BUN/Creatinine Ratio 38.2 (10.0-20.0); Bilirubin, Total 0.6 mg/dL (0.2-1.0); Calcium 8.7 mg/dL (8.5-10.1); Magnesium 1.9 mg/dL (1.6-2.6); Phosphorus 2.3 mg/dL (2.5-4.90); Total Protein 6.8 g/dL (6.4-8.2)
[2022-07-09] MEDS: InsuLIN REG 1unit/0.01ml Soln (100units/ml) SC SCH ×4 (06:04→23:46)
[2022-07-09] MEDS: ACCU-CHEK COMFORT CURVE STRIP VI SCH ×4 (06:05→23:47)
[2022-07-09] MEDS: hydrALAZINE HCL 20 MG/ML VL IV PRN (06:05)
[2022-07-09] MEDS: ALBUTEROL SULF 2.5 MG/0.5ML(0.5%) NEB SOLN NEB SCH ×3 (06:31→22:37)
[2022-07-09] MEDS: IPRATROPIUM BROM 0.5 MG/2.5ML INH SOL NEB SCH ×3 (06:32→22:37)
[2022-07-09] MEDS: NOREPINEPHRINE 8 MG/250ML KIT 250 ML IV SCH (07:01)
[2022-07-09] MEDS: PANTOPRAZOLE 40 MG/10 ML VIAL INJ IV SCH (08:22)
[2022-07-09] MEDS: FLUCONAZOLE 200MG/100ML 100 ML IV SCH ×2 (08:22→09:58)
[2022-07-09] MEDS: FUROSEMIDE 20 MG/2 ML VIAL IV SCH (08:23)
[2022-07-09] MEDS: INSULIN LANTUS (GLARGINE) 1 /0.01ml (100units/ml) SC SCH (08:29)
[2022-07-09] MEDS ORDERED: FLUCONAZOLE 100 MG TAB PO SCH (10:00)
[2022-07-09] MEDS ORDERED: POTASSIUM PHOSPHATE 44 MEQ in D5W 5% 250 ML IV ONE (12:45)
[2022-07-09] MEDS ORDERED: POTASSIUM PHOSPHATE 26.4 MEQ in SODIUM CHL 0.9% 100 ML IV ONE (13:00)
[2022-07-09] MEDS: AMINO ACID INFUSION IN D10W 1,000 ML IV NR (20:04)
[2022-07-10] VITALS (46 sets, daily range): BP systolic 120–159; BP diastolic 70–99
[2022-07-10 03:42] LABS: Basophils # (auto) 0.1 10 ^3/uL (0-0.2); Basophils % (auto) 0.8 % (0.0-2.0); Eosinophils # (auto) 0.3 10 ^3/uL (0-0.8); Eosinophils % (auto) 3.3 % (0.0-7.0); Hematocrit 31.6 % (36.0-46.0); Hemoglobin 10.8 g/dL (12.2-16.2); Lymphocytes % (auto) 12.3 % (10.0-50.0); Mean Corpuscular Hemoglobin 29.3 pg (28.0-32.0); Mean Corpuscular Hgb Conc. 34.2 g/dL (32.0-36.0); Mean Corpuscular Volume 85.7 fL (80.0-100.0); Monocytes # (auto) 0.6 10 ^3/uL (0-1.3); Monocytes % (auto) 6.7 % (0.0-12.0); Neutrophils # (auto) 6.5 10 ^3/uL (1.6-8.6); Neutrophils % (auto) 76.9 % (37.0-80.0); Nucleated Red Blood Cells % 0.1 %; Red Blood Cells 3.69 10^6/uL (4.0-5.20); Red Cell Distribution Width 17.8 % (11.8-14.3); White Blood Cell 8.5 10^3/uL (4.4-10.8)
[2022-07-10] MEDS: PIPERACILLIN-TAZOB 3.375GM 100 ML IV SCH ×3 (03:47→20:18)
[2022-07-10 04:00] LABS: Albumin 2.9 g/dL (3.4-5.0); BUN/Creatinine Ratio 41.5 (10.0-20.0); Calcium 8.6 mg/dL (8.5-10.1)
[2022-07-10 04:24] LABS: Bilirubin, Total 0.5 mg/dL (0.2-1.0); Magnesium 1.7 mg/dL (1.6-2.6); Total Protein 6.7 g/dL (6.4-8.2)
[2022-07-10 04:52] LABS: Potassium 2.9 mmol/L (3.5-5.1)
[2022-07-10] MEDS ORDERED: POTASSIUM CHL 20MEQ/100ML 100 ML IV ONE (05:16)
[2022-07-10] MEDS: POTASSIUM CHL 20MEQ/100ML 100 ML IV SCH ×3 (05:59→07:45)
[2022-07-10] MEDS: InsuLIN REG 1unit/0.01ml Soln (100units/ml) SC SCH ×4 (06:00→23:43)
[2022-07-10] MEDS: ACCU-CHEK COMFORT CURVE STRIP VI SCH ×4 (06:00→23:43)
[2022-07-10] MEDS: ALBUTEROL SULF 2.5 MG/0.5ML(0.5%) NEB SOLN NEB SCH ×3 (06:34→21:51)
[2022-07-10] MEDS: IPRATROPIUM BROM 0.5 MG/2.5ML INH SOL NEB SCH ×3 (06:35→21:51)
[2022-07-10] MEDS: NOREPINEPHRINE 8 MG/250ML KIT 250 ML IV SCH (07:11)
[2022-07-10] MEDS: PANTOPRAZOLE 40 MG/10 ML VIAL INJ IV SCH (07:44)
[2022-07-10] MEDS: INSULIN LANTUS (GLARGINE) 1 /0.01ml (100units/ml) SC SCH (07:44)
[2022-07-10] MEDS: FUROSEMIDE 20 MG/2 ML VIAL IV SCH (07:44)
[2022-07-10] MEDS: FLUCONAZOLE 200MG/100ML 100 ML IV SCH ×2 (07:44→08:53)
[2022-07-10] MEDS ORDERED: SODIUM PHOSPHATES 40 MEQ in D5W 5% 250 ML IV ONE (12:00)
[2022-07-10] MEDS ORDERED: MAGNESIUM SULFATE 1GM/100ML 100 ML IV ONE (12:00)
[2022-07-10] MEDS ORDERED: POTASSIUM PHOSPHATE 44 MEQ in D5W 5% 250 ML IV ONE (12:00)
[2022-07-10] MEDS: cloNIDine 0.2 mg/24hr 7DAY PATCH TD SCH (16:45)
[2022-07-10] MEDS: AMINO ACID INFUSION IN D10W 1,000 ML IV NR (20:19)
[2022-07-11] VITALS (34 sets, daily range): BP systolic 126–173; BP diastolic 69–108
[2022-07-11] MEDS: PIPERACILLIN-TAZOB 3.375GM 100 ML IV SCH ×3 (03:35→19:50)
[2022-07-11] MEDS: ACCU-CHEK COMFORT CURVE STRIP VI SCH ×3 (05:43→16:16)
[2022-07-11] MEDS: InsuLIN REG 1unit/0.01ml Soln (100units/ml) SC SCH ×3 (05:44→16:16)
[2022-07-11 05:46] LABS: Albumin 2.7 g/dL (3.4-5.0); Calcium 7.9 mg/dL (8.5-10.1); Magnesium 1.8 mg/dL (1.6-2.6)
[2022-07-11 05:51] LABS: Potassium 2.6 mmol/L (3.5-5.1)
[2022-07-11 06:01] LABS: Bilirubin, Total 0.5 mg/dL (0.2-1.0); Phosphorus 1.8 mg/dL (2.5-4.90); Total Protein 6.6 g/dL (6.4-8.2)
[2022-07-11] MEDS ORDERED: POTASSIUM CHL 20MEQ/100ML 100 ML IV ONE (06:16)
[2022-07-11] MEDS: POTASSIUM CHL 20MEQ/100ML 100 ML IV SCH ×3 (06:20→09:51)
[2022-07-11] MEDS: ALBUTEROL SULF 2.5 MG/0.5ML(0.5%) NEB SOLN NEB SCH ×3 (06:22→22:20)
[2022-07-11] MEDS: IPRATROPIUM BROM 0.5 MG/2.5ML INH SOL NEB SCH ×3 (06:22→22:20)
[2022-07-11] MEDS: NOREPINEPHRINE 8 MG/250ML KIT 250 ML IV SCH (07:12)
[2022-07-11] MEDS: FUROSEMIDE 20 MG/2 ML VIAL IV SCH (07:26)
[2022-07-11] MEDS: PANTOPRAZOLE 40 MG/10 ML VIAL INJ IV SCH (07:32)
[2022-07-11] MEDS: FLUCONAZOLE 200MG/100ML 100 ML IV SCH ×2 (07:32→08:40)
[2022-07-11] MEDS: INSULIN LANTUS (GLARGINE) 1 /0.01ml (100units/ml) SC SCH (07:34)
[2022-07-11 09:55] LABS: BUN/Creatinine Ratio 32.8 (10.0-20.0)
[2022-07-11] MEDS ORDERED: SODIUM PHOSPHATES 40 MEQ in D5W 5% 250 ML IV ONE (10:00)
[2022-07-11] MEDS ORDERED: DEXTROSE 10% 250 ML Bag IV PRN (11:30)
[2022-07-11] MEDS ORDERED: TPN PER PHARMACY 0 ML IV SCH (12:30)
[2022-07-11] MEDS: TPN PER PHARMACY IV NR ×11 (19:54)
[2022-07-11] MEDS: AMINO ACID INFUSION IN D10W 1,000 ML IV NR (20:00)
[2022-07-12] VITALS (23 sets, daily range): BP systolic 110–162; BP diastolic 67–118
[2022-07-12] MEDS: InsuLIN REG 1unit/0.01ml Soln (100units/ml) SC SCH ×4 (00:30→18:02)
[2022-07-12] MEDS: ACCU-CHEK COMFORT CURVE STRIP VI SCH ×4 (00:30→18:02)
[2022-07-12] MEDS: hydrALAZINE HCL 20 MG/ML VL IV PRN (00:56)
[2022-07-12] MEDS: MORPHINE SULFATE INJ 2 MG/ml SYRG IV PRN ×2 (03:41→10:10)
[2022-07-12] MEDS: PIPERACILLIN-TAZOB 3.375GM 100 ML IV SCH ×3 (03:41→20:13)
[2022-07-12 04:31] LABS: Potassium 3.3 mmol/L (3.5-5.1)
[2022-07-12 04:39] LABS: BUN/Creatinine Ratio 27.9 (10.0-20.0); Bilirubin, Total 0.5 mg/dL (0.2-1.0); Calcium 8.6 mg/dL (8.5-10.1); Magnesium 1.9 mg/dL (1.6-2.6); Phosphorus 1.6 mg/dL (2.5-4.90); Total Protein 6.8 g/dL (6.4-8.2)
[2022-07-12] MEDS: IPRATROPIUM BROM 0.5 MG/2.5ML INH SOL NEB SCH ×3 (05:55→22:04)
[2022-07-12] MEDS: ALBUTEROL SULF 2.5 MG/0.5ML(0.5%) NEB SOLN NEB SCH ×3 (05:55→22:04)
[2022-07-12] MEDS: NOREPINEPHRINE 8 MG/250ML KIT 250 ML IV SCH (08:15)
[2022-07-12] MEDS: PANTOPRAZOLE 40 MG/10 ML VIAL INJ IV SCH (09:09)
[2022-07-12] MEDS: FUROSEMIDE 20 MG/2 ML VIAL IV SCH (09:10)
[2022-07-12] MEDS: FLUCONAZOLE 200MG/100ML 100 ML IV SCH ×2 (09:11→11:00)
[2022-07-12] MEDS: INSULIN LANTUS (GLARGINE) 1 /0.01ml (100units/ml) SC SCH (09:13)
[2022-07-12] MEDS ORDERED: SODIUM PHOSPHATES 40 MEQ in D5W 5% 250 ML IV ONE (12:00)
[2022-07-12] MEDS ORDERED: POTASSIUM PHOSPHATE 22 MEQ in SODIUM CHL 0.9% 100 ML IV ONE (12:00)
[2022-07-12] MEDS: TPN PER PHARMACY IV NR ×11 (19:46)
[2022-07-12] MEDS ORDERED: TPN PER PHARMACY IV NR ×23 (20:00)
[2022-07-13] VITALS (20 sets, daily range): BP systolic 122–165; BP diastolic 66–90
[2022-07-13] MEDS: ACCU-CHEK COMFORT CURVE STRIP VI SCH ×4 (00:11→18:23)
[2022-07-13] MEDS: InsuLIN REG 1unit/0.01ml Soln (100units/ml) SC SCH ×4 (00:14→18:27)
[2022-07-13] MEDS: hydrALAZINE HCL 20 MG/ML VL IV PRN (03:12)
[2022-07-13] MEDS: PIPERACILLIN-TAZOB 3.375GM 100 ML IV SCH ×3 (04:03→20:30)
[2022-07-13 04:41] LABS: Albumin 2.8 g/dL (3.4-5.0); Calcium 8.3 mg/dL (8.5-10.1); Magnesium 2.1 mg/dL (1.6-2.6); Potassium 3.5 mmol/L (3.5-5.1)
[2022-07-13 04:44] LABS: BUN/Creatinine Ratio 38.6 (10.0-20.0); Bilirubin, Total 0.4 mg/dL (0.2-1.0); Phosphorus 3.5 mg/dL (2.5-4.90); Total Protein 6.3 g/dL (6.4-8.2)
[2022-07-13] MEDS: ALBUTEROL SULF 2.5 MG/0.5ML(0.5%) NEB SOLN NEB SCH ×3 (06:13→22:02)
[2022-07-13] MEDS: IPRATROPIUM BROM 0.5 MG/2.5ML INH SOL NEB SCH ×3 (06:13→22:02)
[2022-07-13] MEDS: NOREPINEPHRINE 8 MG/250ML KIT 250 ML IV SCH (08:15)
[2022-07-13] MEDS: FLUCONAZOLE 200MG/100ML 100 ML IV SCH ×2 (10:07→12:29)
[2022-07-13] MEDS: FUROSEMIDE 20 MG/2 ML VIAL IV SCH (10:08)
[2022-07-13] MEDS: PANTOPRAZOLE 40 MG/10 ML VIAL INJ IV SCH (10:08)
[2022-07-13] MEDS: INSULIN LANTUS (GLARGINE) 1 /0.01ml (100units/ml) SC SCH (10:18)
[2022-07-13] MEDS ORDERED: POTASSIUM CHL 20MEQ/100ML 100 ML IV ONE (12:00)
[2022-07-13] MEDS: cloNIDine 0.2 mg/24hr 7DAY PATCH TD SCH (12:30)
[2022-07-13] MEDS ORDERED: TPN PER PHARMACY IV NR ×12 (20:00)
[2022-07-14] VITALS (21 sets, daily range): BP systolic 114–170; BP diastolic 75–104
[2022-07-14] MEDS: InsuLIN REG 1unit/0.01ml Soln (100units/ml) SC SCH ×4 (00:11→18:02)
[2022-07-14] MEDS: ACCU-CHEK COMFORT CURVE STRIP VI SCH ×4 (00:11→17:48)
[2022-07-14 04:50] LABS: Potassium 3.3 mmol/L (3.5-5.1)
[2022-07-14 04:57] LABS: BUN/Creatinine Ratio 39.7 (10.0-20.0); Bilirubin, Total 0.4 mg/dL (0.2-1.0); Calcium 8.5 mg/dL (8.5-10.1); Magnesium 2.4 mg/dL (1.6-2.6); Phosphorus 1.7 mg/dL (2.5-4.90); Total Protein 6.5 g/dL (6.4-8.2)
[2022-07-14] MEDS: IPRATROPIUM BROM 0.5 MG/2.5ML INH SOL NEB SCH ×2 (06:37→14:00)
[2022-07-14] MEDS: ALBUTEROL SULF 2.5 MG/0.5ML(0.5%) NEB SOLN NEB SCH ×2 (06:37→14:00)
[2022-07-14] MEDS: NOREPINEPHRINE 8 MG/250ML KIT 250 ML IV SCH (08:01)
[2022-07-14] MEDS: PANTOPRAZOLE 40 MG/10 ML VIAL INJ IV SCH (10:59)
[2022-07-14] MEDS: FLUCONAZOLE 200MG/100ML 100 ML IV SCH ×2 (10:59→12:06)
[2022-07-14] MEDS: hydrALAZINE HCL 20 MG/ML VL IV PRN (11:00)
[2022-07-14] MEDS: FUROSEMIDE 20 MG/2 ML VIAL IV SCH (11:00)
[2022-07-14] MEDS ORDERED: POTASSIUM PHOSPHATE 44 MEQ in D5W 5% 250 ML IV ONE (11:00)
[2022-07-14] MEDS: INSULIN LANTUS (GLARGINE) 1 /0.01ml (100units/ml) SC SCH (11:21)
[2022-07-14] MEDS ORDERED: TPN PER PHARMACY IV NR ×12 (20:00)
[2022-07-15] VITALS (21 sets, daily range): BP systolic 130–164; BP diastolic 67–94
[2022-07-15] MEDS: IPRATROPIUM BROM 0.5 MG/2.5ML INH SOL NEB SCH ×3 (00:04→22:09)
[2022-07-15] MEDS: ALBUTEROL SULF 2.5 MG/0.5ML(0.5%) NEB SOLN NEB SCH ×3 (00:04→22:09)
[2022-07-15] MEDS: InsuLIN REG 1unit/0.01ml Soln (100units/ml) SC SCH ×4 (01:00→16:51)
[2022-07-15] MEDS: ACCU-CHEK COMFORT CURVE STRIP VI SCH ×4 (01:49→11:09)
[2022-07-15 04:29] LABS: Potassium 3.5 mmol/L (3.5-5.1)
[2022-07-15 04:38] LABS: Albumin 2.9 g/dL (3.4-5.0); Bilirubin, Total 0.4 mg/dL (0.2-1.0); Calcium 8.5 mg/dL (8.5-10.1); Magnesium 2.5 mg/dL (1.6-2.6); Phosphorus 2.2 mg/dL (2.5-4.90); Total Protein 6.7 g/dL (6.4-8.2)
[2022-07-15] MEDS: NOREPINEPHRINE 8 MG/250ML KIT 250 ML IV SCH (07:23)
[2022-07-15] MEDS: PANTOPRAZOLE 40 MG/10 ML VIAL INJ IV SCH (07:44)
[2022-07-15] MEDS: FUROSEMIDE 20 MG/2 ML VIAL IV SCH (07:44)
[2022-07-15] MEDS: hydrALAZINE HCL 20 MG/ML VL IV PRN (07:44)
[2022-07-15] MEDS: FLUCONAZOLE 200MG/100ML 100 ML IV SCH ×2 (07:44→09:52)
[2022-07-15] MEDS: INSULIN LANTUS (GLARGINE) 1 /0.01ml (100units/ml) SC SCH (08:44)
[2022-07-15] MEDS ORDERED: POTASSIUM PHOSPHATE 22 MEQ in SODIUM CHL 0.9% 100 ML IV ONE (11:30)
[2022-07-15] MEDS ORDERED: TPN PER PHARMACY IV NR ×12 (20:00)
[2022-07-16] VITALS (22 sets, daily range): BP systolic 125–168; BP diastolic 69–104
[2022-07-16] MEDS: ACCU-CHEK COMFORT CURVE STRIP VI SCH ×4 (00:15→11:16)
[2022-07-16] MEDS: InsuLIN REG 1unit/0.01ml Soln (100units/ml) SC SCH ×4 (00:22→17:03)
[2022-07-16 04:33] LABS: Basophils # (auto) 0 10 ^3/uL (0-0.2); Basophils % (auto) 0.5 % (0.0-2.0); Eosinophils # (auto) 0.2 10 ^3/uL (0-0.8); Eosinophils % (auto) 2.2 % (0.0-7.0); Hemoglobin 9.8 g/dL (12.2-16.2); Lymphocytes # (auto) 0.9 10 ^3/uL (0.4-5.4); Lymphocytes % (auto) 12.5 % (10.0-50.0); Mean Corpuscular Hemoglobin 29.7 pg (28.0-32.0); Mean Corpuscular Hgb Conc. 33.8 g/dL (32.0-36.0); Mean Corpuscular Volume 87.9 fL (80.0-100.0); Monocytes # (auto) 0.4 10 ^3/uL (0-1.3); Monocytes % (auto) 5.7 % (0.0-12.0); Neutrophils # (auto) 5.9 10 ^3/uL (1.6-8.6); Neutrophils % (auto) 79.1 % (37.0-80.0); White Blood Cell 7.5 10^3/uL (4.4-10.8)
[2022-07-16 04:44] LABS: Albumin 2.9 g/dL (3.4-5.0); BUN/Creatinine Ratio 79.1 (10.0-20.0); Calcium 8.5 mg/dL (8.5-10.1); Magnesium 2.4 mg/dL (1.6-2.6); Potassium 3.4 mmol/L (3.5-5.1)
[2022-07-16 04:46] LABS: Bilirubin, Total 0.3 mg/dL (0.2-1.0); Phosphorus 2.4 mg/dL (2.5-4.90); Total Protein 6.8 g/dL (6.4-8.2)
[2022-07-16] MEDS: IPRATROPIUM BROM 0.5 MG/2.5ML INH SOL NEB SCH ×3 (07:18→22:30)
[2022-07-16] MEDS: ALBUTEROL SULF 2.5 MG/0.5ML(0.5%) NEB SOLN NEB SCH ×3 (07:18→22:30)
[2022-07-16] MEDS: FLUCONAZOLE 200MG/100ML 100 ML IV SCH ×2 (08:17→09:07)
[2022-07-16] MEDS: PANTOPRAZOLE 40 MG/10 ML VIAL INJ IV SCH (08:17)
[2022-07-16] MEDS: FUROSEMIDE 20 MG/2 ML VIAL IV SCH (08:17)
[2022-07-16] MEDS: INSULIN LANTUS (GLARGINE) 1 /0.01ml (100units/ml) SC SCH (08:23)
[2022-07-16] MEDS ORDERED: POTASSIUM PHOSPHATE 22 MEQ in SODIUM CHL 0.9% 100 ML IV ONE ×2 (09:45→10:00)
[2022-07-16] MEDS: TPN PER PHARMACY IV NR ×12 (20:11)
[2022-07-17] VITALS (24 sets, daily range): BP systolic 124–173; BP diastolic 73–96
[2022-07-17] MEDS: ACCU-CHEK COMFORT CURVE STRIP VI SCH ×4 (00:09→16:53)
[2022-07-17] MEDS: InsuLIN REG 1unit/0.01ml Soln (100units/ml) SC SCH ×4 (00:11→16:56)
[2022-07-17 05:01] LABS: Potassium 3.5 mmol/L (3.5-5.1)
[2022-07-17 05:10] LABS: Albumin 2.8 g/dL (3.4-5.0); BUN/Creatinine Ratio 64.8 (10.0-20.0); Magnesium 2.3 mg/dL (1.6-2.6)
[2022-07-17 05:12] LABS: Bilirubin, Total 0.4 mg/dL (0.2-1.0); Phosphorus 2.2 mg/dL (2.5-4.90); Total Protein 6.9 g/dL (6.4-8.2)
[2022-07-17] MEDS: hydrALAZINE HCL 20 MG/ML VL IV PRN (05:35)
[2022-07-17] MEDS: PANTOPRAZOLE 40 MG/10 ML VIAL INJ IV SCH (07:50)
[2022-07-17] MEDS: FUROSEMIDE 20 MG/2 ML VIAL IV SCH (07:50)
[2022-07-17] MEDS: FLUCONAZOLE 200MG/100ML 100 ML IV SCH ×2 (07:50→07:56)
[2022-07-17] MEDS: INSULIN LANTUS (GLARGINE) 1 /0.01ml (100units/ml) SC SCH (07:51)
[2022-07-17] MEDS: IPRATROPIUM BROM 0.5 MG/2.5ML INH SOL NEB SCH ×2 (08:16→22:18)
[2022-07-17] MEDS: ALBUTEROL SULF 2.5 MG/0.5ML(0.5%) NEB SOLN NEB SCH ×3 (08:16→22:18)
[2022-07-17] MEDS ORDERED: POTASSIUM PHOSPHATE 22 MEQ in SODIUM CHL 0.9% 100 ML IV ONE (10:30)
[2022-07-17] MEDS: cloNIDine 0.2 mg/24hr 7DAY PATCH TD SCH (12:44)
[2022-07-17] MEDS: TPN PER PHARMACY IV NR ×12 (19:50)
[2022-07-17] MEDS ORDERED: TPN PER PHARMACY IV NR ×11 (20:00)
[2022-07-18] VITALS (21 sets, daily range): BP systolic 125–165; BP diastolic 74–105
[2022-07-18] MEDS: ACCU-CHEK COMFORT CURVE STRIP VI SCH ×5 (00:26→23:51)
[2022-07-18] MEDS: InsuLIN REG 1unit/0.01ml Soln (100units/ml) SC SCH ×5 (00:29→23:52)
[2022-07-18 04:23] LABS: Albumin 2.9 g/dL (3.4-5.0); BUN/Creatinine Ratio 73.7 (10.0-20.0); Calcium 9.4 mg/dL (8.5-10.1); Magnesium 2.3 mg/dL (1.6-2.6)
[2022-07-18 04:39] LABS: Bilirubin, Total 0.3 mg/dL (0.2-1.0); Phosphorus 2.2 mg/dL (2.5-4.90); Total Protein 7.1 g/dL (6.4-8.2)
[2022-07-18] MEDS: ALBUTEROL SULF 2.5 MG/0.5ML(0.5%) NEB SOLN NEB SCH ×3 (06:20→23:22)
[2022-07-18] MEDS: IPRATROPIUM BROM 0.5 MG/2.5ML INH SOL NEB SCH ×3 (06:20→23:22)
[2022-07-18] MEDS: hydrALAZINE HCL 20 MG/ML VL IV PRN (06:27)
[2022-07-18] MEDS: PANTOPRAZOLE 40 MG/10 ML VIAL INJ IV SCH (09:58)
[2022-07-18] MEDS: FUROSEMIDE 20 MG/2 ML VIAL IV SCH (09:59)
[2022-07-18] MEDS: FLUCONAZOLE 200MG/100ML 100 ML IV SCH ×2 (10:02→11:16)
[2022-07-18] MEDS: INSULIN LANTUS (GLARGINE) 1 /0.01ml (100units/ml) SC SCH (10:13)
[2022-07-18] MEDS ORDERED: POTASSIUM PHOSPHATE 22 MEQ in SODIUM CHL 0.9% 100 ML IV ONE (11:15)
[2022-07-18] MEDS ORDERED: TPN PER PHARMACY IV NR ×10 (20:00)
[2022-07-19] VITALS (11 sets, daily range): BP systolic 136–162; BP diastolic 81–107
[2022-07-19 04:15] LABS: Basophils # (auto) 0.1 10 ^3/uL (0-0.2); Basophils % (auto) 1.2 % (0.0-2.0); Eosinophils # (auto) 0.2 10 ^3/uL (0-0.8); Eosinophils % (auto) 2.5 % (0.0-7.0); Hematocrit 33.2 % (36.0-46.0); Hemoglobin 10.9 g/dL (12.2-16.2); Lymphocytes # (auto) 1.7 10 ^3/uL (0.4-5.4); Lymphocytes % (auto) 27.8 % (10.0-50.0); Mean Corpuscular Hemoglobin 29.6 pg (28.0-32.0); Mean Corpuscular Hgb Conc. 32.9 g/dL (32.0-36.0); Mean Corpuscular Volume 90.1 fL (80.0-100.0); Monocytes # (auto) 0.5 10 ^3/uL (0-1.3); Monocytes % (auto) 7.6 % (0.0-12.0); Neutrophils # (auto) 3.8 10 ^3/uL (1.6-8.6); Neutrophils % (auto) 60.9 % (37.0-80.0); Nucleated Red Blood Cells % 0.1 %; Red Blood Cells 3.69 10^6/uL (4.0-5.20); White Blood Cell 6.2 10^3/uL (4.4-10.8)
[2022-07-19 04:22] LABS: Red Cell Distribution Width 20.4 % (11.8-14.3)
[2022-07-19 04:39] LABS: Albumin 3.2 g/dL (3.4-5.0); BUN/Creatinine Ratio 73.3 (10.0-20.0); Bilirubin, Total 0.3 mg/dL (0.2-1.0); Magnesium 2.6 mg/dL (1.6-2.6); Phosphorus 2.3 mg/dL (2.5-4.90); Total Protein 7.1 g/dL (6.4-8.2)
[2022-07-19] MEDS: ACCU-CHEK COMFORT CURVE STRIP VI SCH ×2 (05:49→12:01)
[2022-07-19] MEDS: InsuLIN REG 1unit/0.01ml Soln (100units/ml) SC SCH ×2 (05:50→12:08)
[2022-07-19] MEDS: ALBUTEROL SULF 2.5 MG/0.5ML(0.5%) NEB SOLN NEB SCH (06:58)
[2022-07-19] MEDS: IPRATROPIUM BROM 0.5 MG/2.5ML INH SOL NEB SCH (06:59)
[2022-07-19] MEDS: FLUCONAZOLE 200MG/100ML 100 ML IV SCH ×2 (10:08→12:00)
[2022-07-19] MEDS: PANTOPRAZOLE 40 MG/10 ML VIAL INJ IV SCH (10:10)
[2022-07-19] MEDS: FUROSEMIDE 20 MG/2 ML VIAL IV SCH (10:13)
[2022-07-19] MEDS: INSULIN LANTUS (GLARGINE) 1 /0.01ml (100units/ml) SC SCH (10:31)
[2022-07-19] MEDS ORDERED: TPN PER PHARMACY IV NR ×8 (20:00)
[2022-07-20] MEDS ORDERED: INSULIN LANTUS (GLARGINE) 1 /0.01ml (100units/ml) SC SCH (10:00)
== END 2022-07-19 14:53 | DRG 853 ==
LOC: EDBD 17:46 → ER 17:46 → TELE 21:46 → ICU WEST 06-17 00:20
PROVIDERS: ADMIT Nurse Practitioner; ATTEND Hospitalist
PROC: 02HV33Z Insertion of Infusion Device into Superior Vena Cava, Percutaneous Approach (ICD-10-PCS; 2022-06-17)
PROC: B548ZZA Ultrasonography of Superior Vena Cava, Guidance (ICD-10-PCS; 2022-06-17)
PROC: 0BH17EZ Insertion of Endotracheal Airway into Trachea, Via Natural or Artificial Opening (ICD-10-PCS; 2022-06-17)
PROC: 5A1955Z Respiratory Ventilation, Greater than 96 Consecutive Hours (ICD-10-PCS; 2022-06-17)
PROC: 30233N1 Transfusion of Nonautologous Red Blood Cells into Peripheral Vein, Percutaneous Approach (ICD-10-PCS; principal; 2022-06-18)
PROC: 0DBU0ZZ Excision of Omentum, Open Approach (ICD-10-PCS; 2022-06-19)
PROC: 0YQ80ZZ Repair Left Femoral Region, Open Approach (ICD-10-PCS; 2022-06-19)
PROC: 0B9L8ZZ Drainage of Left Lung, Via Natural or Artificial Opening Endoscopic (ICD-10-PCS; 2022-07-03)
PROC: 0B9D8ZX Drainage of Right Middle Lung Lobe, Via Natural or Artificial Opening Endoscopic, Diagnostic (ICD-10-PCS; 2022-07-03)
PROC: 5A09357 Assistance with Respiratory Ventilation, Less than 24 Consecutive Hours, Continuous Positive Airway Pressure (ICD-10-PCS; 2022-07-05)
PROC: 5A09357 Assistance with Respiratory Ventilation, Less than 24 Consecutive Hours, Continuous Positive Airway Pressure (ICD-10-PCS; 2022-07-06)
PROC: 5A09357 Assistance with Respiratory Ventilation, Less than 24 Consecutive Hours, Continuous Positive Airway Pressure (ICD-10-PCS; 2022-07-07)
PROC: 5A09357 Assistance with Respiratory Ventilation, Less than 24 Consecutive Hours, Continuous Positive Airway Pressure (ICD-10-PCS; 2022-07-08)
PROC: 5A09357 Assistance with Respiratory Ventilation, Less than 24 Consecutive Hours, Continuous Positive Airway Pressure (ICD-10-PCS; 2022-07-09)
PROC: 5A09357 Assistance with Respiratory Ventilation, Less than 24 Consecutive Hours, Continuous Positive Airway Pressure (ICD-10-PCS; 2022-07-10)
DX: A41.89 Other specified sepsis (principal); E11.10 Type 2 diabetes mellitus with ketoacidosis without coma; E43 Unspecified severe protein-calorie malnutrition; U07.1 COVID-19; J96.01 Acute respiratory failure with hypoxia; R65.21 Severe sepsis with septic shock; J96.00 Acute respiratory failure, unspecified whether with hypoxia or hypercapnia; G93.41 Metabolic encephalopathy; J12.82 Pneumonia due to coronavirus disease 2019; N17.9 Acute kidney failure, unspecified; E87.1 Hypo-osmolality and hyponatremia; K41.30 Unilateral femoral hernia, with obstruction, without gangrene, not specified as recurrent; K40.30 Unilateral inguinal hernia, with obstruction, without gangrene, not specified as recurrent; K92.2 Gastrointestinal hemorrhage, unspecified; Z99.11 Dependence on respirator [ventilator] status; I95.2 Hypotension due to drugs; E11.22 Type 2 diabetes mellitus with diabetic chronic kidney disease; R13.10 Dysphagia, unspecified; G30.9 Alzheimer's disease, unspecified; F02.80 Dementia in other diseases classified elsewhere, unspecified severity, without behavioral disturbance, psychotic disturbance, mood disturbance, and anxiety; D64.9 Anemia, unspecified; E03.9 Hypothyroidism, unspecified; E78.5 Hyperlipidemia, unspecified; I12.9 Hypertensive chronic kidney disease with stage 1 through stage 4 chronic kidney disease, or unspecified chronic kidney disease; N18.32 Chronic kidney disease, stage 3b; E86.0 Dehydration; Z78.9 Other specified health status; Z79.4 Long term (current) use of insulin; Z68.24 Body mass index [BMI] 24.0-24.9, adult
CPT/HCPCS: 31624; 36415; 36600; 70450; 71045; 74176; 74177; 76775; 80048; 80053; 81001; 82010; 82570; 82728; 82805; 82962; 83540; 83550; 83605; 83735; 83880; 84100; 84132; 84156; 84300; 84443; 84478; 84484; 85007; 85014; 85018; 85025; 85027; 85379; 85610; 85730; 86141; 86850; 86900; 86901; 86920; 87040; 87070; 87077; 87081; 87086; 87088; 87186; 87205; 87426; 93005; 93306; 93926; 94002; 94003; 94640; 94660; 96361; 96365; 96372; 96375; 97110; 97116; 97163; C9113; G0378; J0171; J0696; J1100; J1450; J1815; J2250; J2405; J2543; J2704; J3480; J3490; J7042; J7060; J7131; P9047

== ENCOUNTER 2022-09-30 15:46 | Inpatient (IN) | payer OTHER, MEDICAID ==
[~2022-09-30] VITALS: Ht 167.6 cm; Wt 53.1 kg
[2022-09-30] MEDS ORDERED: MORPHINE SULFATE 4 MG/ML SYR/VIAL IV ONE (16:15)
[2022-09-30] MEDS ORDERED: ONDANSETRON HCL 4 MG/2 ML VIAL IV ONE (16:15)
[2022-09-30 16:34] VITALS: PULSE 83; RESP 22; O2SAT 97
[2022-09-30 17:12] LABS: Basophils # (auto) 0.1 10 ^3/uL (0-0.2); Basophils % (auto) 0.8 % (0.0-2.0); Eosinophils # (auto) 0.1 10 ^3/uL (0-0.8); Eosinophils % (auto) 1.1 % (0.0-7.0); Hematocrit 33.7 % (36.0-46.0); Hemoglobin 11.5 g/dL (12.2-16.2); Lymphocytes # (auto) 1.4 10 ^3/uL (0.4-5.4); Lymphocytes % (auto) 20.4 % (10.0-50.0); Mean Corpuscular Hemoglobin 30.6 pg (28.0-32.0); Mean Corpuscular Volume 90.1 fL (80.0-100.0); Monocytes # (auto) 0.5 10 ^3/uL (0-1.3); Monocytes % (auto) 7.4 % (0.0-12.0); Neutrophils # (auto) 4.9 10 ^3/uL (1.6-8.6); Neutrophils % (auto) 70.3 % (37.0-80.0); Nucleated Red Blood Cells % 0.1 %; Red Blood Cells 3.74 10^6/uL (4.0-5.20); Red Cell Distribution Width 13.4 % (11.8-14.3)
[2022-09-30 17:28] LABS: Partial Thromboplastin Time < 20.0 SEC (24.5-34.5); Potassium 3.9 mmol/L (3.5-5.1)
[2022-09-30] MEDS ORDERED: MORPHINE SULFATE INJ 2 MG/ml SYRG IV PRN (17:30)
[2022-09-30] MEDS ORDERED: ONDANSETRON HCL 4 MG/2 ML VIAL IV PRN (17:30)
[2022-09-30] MEDS ORDERED: HYDROcodone-ACET 5/325MG TAB PO PRN (17:30)
[2022-09-30] MEDS ORDERED: NITROGLYCERIN 0.4 MG SL TAB SL PRN (17:30)
[2022-09-30 17:34] LABS: Albumin 3.3 g/dL (3.4-5.0); BUN/Creatinine Ratio 18.6 (10.0-20.0); Bilirubin, Total 0.3 mg/dL (0.2-1.0); Total Protein 7.1 g/dL (6.4-8.2)
[2022-09-30] MEDS ORDERED: D5W/SOD CHLO 0.9% 1,000 ML IV SCH (17:45)
[2022-09-30] MEDS: hydrALAZINE HCL 20 MG/ML VL IV SCH (18:32)
[2022-09-30 18:45] LABS: Urine Bacteria NONE SEEN /hpf (None Seen); Urine Blood Negative /uL (Negative); Urine Specific Gravity 1.026 (1.001-1.035); Urine WBC 47 /hpf (0 - 5)
[2022-09-30] MEDS: MORPHINE SULFATE INJ 2 MG/ml SYRG IV PRN ×2 (19:12→23:01)
[2022-09-30] MEDS: cefTRIAXone 1GM/50ML D5W 50 ML IV SCH (20:17)
[2022-09-30 20:40] VITALS: PULSE 107; RESP 22; O2SAT 99
[2022-09-30] MEDS: MORPHINE SULFATE 4 MG/ML SYR/VIAL IV PRN (20:45)
[2022-10-01] MEDS: hydrALAZINE HCL 20 MG/ML VL IV SCH ×3 (06:00→19:09)
[2022-10-01 08:00] VITALS: PULSE 90; RESP 22; O2SAT 97
[2022-10-01] MEDS: cefTRIAXone 1GM/50ML D5W 50 ML IV SCH (09:27)
[2022-10-01] MEDS: FAMOTIDINE 20 MG TAB PO SCH (10:00)
[2022-10-01] MEDS ORDERED: BUPIVACAINE W/ EPINEPH 0.5% INJ 50ML MDV IJ ONE (12:08)
[2022-10-01] MEDS ORDERED: CHOL20007 PO (12:08)
[2022-10-01] MEDS ORDERED: OMEP20TA85 PO (12:08)
[2022-10-01] MEDS ORDERED: ATOR10TA52 PO (12:08)
[2022-10-01] MEDS ORDERED: ACET250T20 PO (12:08)
[2022-10-01] MEDS ORDERED: LEVO150T10 PO (12:08)
[2022-10-01] MEDS ORDERED: APIX5TAB PO (12:08)
[2022-10-01] MEDS ORDERED: SERT-206 PO (12:08)
[2022-10-01] MEDS ORDERED: BENA-19 PO (12:08)
[2022-10-01] MEDS ORDERED: EPINEPHrine HCL 1 MG/1 ML AMP ONE (12:09)
[2022-10-01] MEDS ORDERED: DexAMETHasone SOD PHOS 4 MG/1ML SDV INJ ONE (12:09)
[2022-10-01] MEDS ORDERED: SODIUM CHLORIDE LOCK 20 ML ONE (12:11)
[2022-10-01] MEDS ORDERED: INSLANTI SC (12:14)
[2022-10-01] MEDS ORDERED: MIDAZOLAM HCL 2MG/2ML 2ml VIAL (1mg/ml) ONE (12:17)
[2022-10-01] MEDS ORDERED: fentaNYL CITRATE 100 MCG/2 ML VL ONE (12:17)
[2022-10-01] MEDS ORDERED: ROPIVACAINE 0.5% (5MG/ML) 20ML AMPULE IJ ONE (12:56)
[2022-10-01] MEDS ORDERED: DexAMETHasone SOD PHOS 10MG/1ML VIAL INJ ONE (13:23)
[2022-10-01] MEDS ORDERED: PROPOFOL 10 MG/ML 20 ML IV ONE (13:23)
[2022-10-01] MEDS ORDERED: MEPERIDINE HCL (25 MG/ML) 1ML VIAL ONE (13:23)
[2022-10-01] MEDS ORDERED: MORPHINE SULFATE 4 MG/ML SYR/VIAL IV PRN (14:15)
[2022-10-01] MEDS ORDERED: HYDROmorphone HCL 2 MG/ML VL/or syr IV PRN (14:15)
[2022-10-01] MEDS ORDERED: LABETALOL HCL 5 MG/ML 4ML SYRINGE IV PRN (14:15)
[2022-10-01] MEDS ORDERED: LACTATED RINGER'S 1,000 ML IV SCH (14:15)
[2022-10-01] MEDS ORDERED: MIDAZOLAM HCL 2MG/2ML 2ml VIAL (1mg/ml) IV PRN (14:15)
[2022-10-01] MEDS ORDERED: ONDANSETRON HCL 4 MG/2 ML VIAL IV PRN (14:15)
[2022-10-01] MEDS ORDERED: ePHEDrine SULFATE 50 MG/ML AMP IV PRN (14:15)
[2022-10-01 22:00] VITALS: BP 127/86; PULSE 94; RESP 18; O2SAT 97
[2022-10-01] MEDS: HYDROcodone-ACET 10/325MG TAB PO PRN (22:08)
[2022-10-01] MEDS: ceFAZolin 2 GM/D5W100ml 100 ML IV SCH (22:16)
[2022-10-01] MEDS: SODIUM CHLOR 0.9% PF (SALINE LOCK) 10ML VIAL/SYR IV SCH (22:16)
[2022-10-02] VITALS (7 sets, daily range): BP systolic 108–132; BP diastolic 60–78; PULSE 80–119; RESP 17–20; TEMP 98–99.5; O2SAT 20–100
[2022-10-02] MEDS ORDERED: OMEP-448 (02:33)
[2022-10-02] MEDS ORDERED: ONDA-180 PO (02:33)
[2022-10-02] MEDS ORDERED: INSUINJ37 SC (02:33)
[2022-10-02] MEDS ORDERED: ALEN70TA74 PO (02:33)
[2022-10-02] MEDS ORDERED: ZOLP12.569 PO (02:34)
[2022-10-02] MEDS ORDERED: HYDR-4902 PO (02:34)
[2022-10-02] MEDS: hydrALAZINE HCL 20 MG/ML VL IV SCH ×4 (06:00→18:00)
[2022-10-02] MEDS: SODIUM CHLOR 0.9% PF (SALINE LOCK) 10ML VIAL/SYR IV SCH ×2 (06:25→15:00)
[2022-10-02] MEDS: ceFAZolin 2 GM/D5W100ml 100 ML IV SCH (06:26)
[2022-10-02 07:07] LABS: Basophils # (auto) 0 10 ^3/uL (0-0.2); Basophils % (auto) 0.3 % (0.0-2.0); Eosinophils # (auto) 0 10 ^3/uL (0-0.8); Eosinophils % (auto) 0.4 % (0.0-7.0); Hematocrit 25.9 % (36.0-46.0); Hemoglobin 8.9 g/dL (12.2-16.2); Lymphocytes # (auto) 1.5 10 ^3/uL (0.4-5.4); Mean Corpuscular Hemoglobin 31.3 pg (28.0-32.0); Mean Corpuscular Hgb Conc. 34.2 g/dL (32.0-36.0); Mean Corpuscular Volume 91.6 fL (80.0-100.0); Monocytes % (auto) 11.3 % (0.0-12.0); Neutrophils # (auto) 6.2 10 ^3/uL (1.6-8.6); Nucleated Red Blood Cells % 0.1 %; Red Blood Cells 2.83 10^6/uL (4.0-5.20); Red Cell Distribution Width 13.2 % (11.8-14.3); White Blood Cell 8.8 10^3/uL (4.4-10.8)
[2022-10-02 07:49] LABS: BUN/Creatinine Ratio 23.1 (10.0-20.0); Calcium 8.4 mg/dL (8.5-10.1)
[2022-10-02] MEDS: HYDROcodone-ACET 10/325MG TAB PO PRN ×2 (08:43→21:48)
[2022-10-02] MEDS: cefTRIAXone 1GM/50ML D5W 50 ML IV SCH (10:53)
[2022-10-02] MEDS: FAMOTIDINE 20 MG TAB PO SCH (10:53)
[2022-10-02] MEDS: APIXABAN 2.5 MG TAB PO SCH ×2 (10:53→21:48)
[2022-10-02] MEDS: MORPHINE SULFATE INJ 2 MG/ml SYRG IV PRN (15:14)
[2022-10-03] VITALS (8 sets, daily range): BP systolic 97–131; BP diastolic 57–83; PULSE 65–110; RESP 16–20; TEMP 97.5–98.5; O2SAT 95–98
[2022-10-03] MEDS: SODIUM CHLOR 0.9% PF (SALINE LOCK) 10ML VIAL/SYR IV SCH ×5 (00:20→22:31)
[2022-10-03] MEDS: HYDROcodone-ACET 10/325MG TAB PO PRN (05:50)
[2022-10-03] MEDS: hydrALAZINE HCL 20 MG/ML VL IV SCH ×4 (06:00→18:00)
[2022-10-03] MEDS: FAMOTIDINE 20 MG TAB PO SCH (10:08)
[2022-10-03] MEDS: APIXABAN 2.5 MG TAB PO SCH ×3 (10:09→22:31)
[2022-10-03] MEDS: cefTRIAXone 1GM/50ML D5W 50 ML IV SCH (10:09)
[2022-10-03] MEDS: VANCOMYCIN 1GM/250ML 250 ML IV ONE ×2 (10:30→13:03)
[2022-10-03] MEDS ORDERED: VANCOMYCIN PER PHARMACY 0 MG IV SCH (10:30)
[2022-10-03] MEDS ORDERED: DEXTROSE (50%) 50ML SYRG IV PRN (12:45)
[2022-10-03] MEDS: MORPHINE SULFATE INJ 2 MG/ml SYRG IV PRN (13:09)
[2022-10-03 14:09] LABS: Partial Thromboplastin Time 25.2 SEC (24.5-34.5)
[2022-10-03] MEDS ORDERED: VANCOMYCIN 1GM/250ML 250 ML IV ONE ×2 (16:00)
[2022-10-03] MEDS ORDERED: LIDOCAINE 1% (LOCAL ANESTH.) PF 5ml SDV ID ONE (16:45)
[2022-10-03] MEDS ORDERED: InsuLIN REG 1unit/0.01ml Soln (100units/ml) SC ONE (17:00)
[2022-10-03] MEDS ORDERED: ACCU-CHEK COMFORT CURVE STRIP VI SCH (17:00)
[2022-10-03] MEDS: ACCU-CHEK COMFORT CURVE STRIP VI SCH ×2 (17:39→22:31)
[2022-10-03] MEDS: InsuLIN REG 1unit/0.01ml Soln (100units/ml) SC SCH (18:24)
[2022-10-03] MEDS ORDERED: InsuLIN REG 1unit/0.01ml Soln (100units/ml) SC SCH (22:00)
[2022-10-03] MEDS: MORPHINE SULFATE 4 MG/ML SYR/VIAL IV PRN (22:33)
[2022-10-04] MEDS ORDERED: VANCOMYCIN 750mg/250ml 250 ML IV SCH (02:00)
[2022-10-04] MEDS: MORPHINE SULFATE INJ 2 MG/ml SYRG IV PRN ×2 (02:23→15:10)
[2022-10-04 05:00] VITALS: BP 121/78; PULSE 88; RESP 16; O2SAT 99
[2022-10-04] MEDS: hydrALAZINE HCL 20 MG/ML VL IV SCH ×4 (05:44→18:00)
[2022-10-04] MEDS: SODIUM CHLOR 0.9% PF (SALINE LOCK) 10ML VIAL/SYR IV SCH ×3 (06:07→14:00)
[2022-10-04] MEDS: ACCU-CHEK COMFORT CURVE STRIP VI SCH ×3 (06:07→17:00)
[2022-10-04] MEDS: InsuLIN REG 1unit/0.01ml Soln (100units/ml) SC SCH ×3 (06:08→17:00)
[2022-10-04] MEDS: HYDROcodone-ACET 10/325MG TAB PO PRN ×2 (06:15→14:00)
[2022-10-04 08:00] VITALS: PULSE 72
[2022-10-04 09:00] VITALS: BP 104/69; PULSE 75; RESP 19; TEMP 97.7; O2SAT 94
[2022-10-04] MEDS: FAMOTIDINE 20 MG TAB PO SCH (10:34)
[2022-10-04] MEDS: cefTRIAXone 1GM/50ML D5W 50 ML IV SCH (10:34)
[2022-10-04] MEDS: APIXABAN 2.5 MG TAB PO SCH (10:34)
[2022-10-04 13:00] VITALS: BP 117/65; PULSE 72; RESP 20; TEMP 98.5; O2SAT 95
[2022-10-04 16:42] VITALS: BP 121/86; PULSE 88; RESP 18; TEMP 36.9; O2SAT 96
== END 2022-10-04 18:00 | DRG 481 ==
LOC: ER 15:46 → EDBD 15:46 → TELE 17:35 → TELE-EAST 10-01 17:50
PROVIDERS: ADMIT Family Medicine; ATTEND Family Medicine
PROC: 0QS706Z Reposition Left Upper Femur with Intramedullary Internal Fixation Device, Open Approach (ICD-10-PCS; principal; 2022-10-01 12:57)
PROC: 02HV33Z Insertion of Infusion Device into Superior Vena Cava, Percutaneous Approach (ICD-10-PCS; 2022-10-03)
PROC: B548ZZA Ultrasonography of Superior Vena Cava, Guidance (ICD-10-PCS; 2022-10-03)
DX: S72.142A Displaced intertrochanteric fracture of left femur, initial encounter for closed fracture (principal); N39.0 Urinary tract infection, site not specified; I10 Essential (primary) hypertension; I48.91 Unspecified atrial fibrillation; E11.9 Type 2 diabetes mellitus without complications; B95.62 Methicillin resistant Staphylococcus aureus infection as the cause of diseases classified elsewhere; E03.9 Hypothyroidism, unspecified; E78.00 Pure hypercholesterolemia, unspecified; K21.9 Gastro-esophageal reflux disease without esophagitis; R29.6 Repeated falls; F03.90 Unspecified dementia, unspecified severity, without behavioral disturbance, psychotic disturbance, mood disturbance, and anxiety; M81.0 Age-related osteoporosis without current pathological fracture; W01.0XXA Fall on same level from slipping, tripping and stumbling without subsequent striking against object, initial encounter; Z79.01 Long term (current) use of anticoagulants; Y92.000 Kitchen of unspecified non-institutional (private) residence as the place of occurrence of the external cause; Z79.4 Long term (current) use of insulin; Z86.16 Personal history of COVID-19; Z98.42 Cataract extraction status, left eye; Z98.41 Cataract extraction status, right eye; Y93.89 Activity, other specified; Y99.8 Other external cause status
CPT/HCPCS: 36415; 36569; 71045; 73502; 76000; 80048; 80053; 81001; 82962; 85025; 85610; 85730; 86850; 86900; 86901; 87086; 87088; 87186; 87426; 93005; 96361; 96374; 96375; 97110; 97116; 97163; 97530; G0378; J0171; J0696; J1100; J1815; J2250; J2405; J2704